=== PATIENT | male | born 1990 | race Caucasian/White ===

== ENCOUNTER 2022-04-20 02:24 | Emergency (ER) | payer MEDICAID, SELFPAY ==
[2022-04-20 02:34] VITALS: BP 146/88; PULSE 88; RESP 16; TEMP 36.9; O2SAT 99; BMI 30.8
--- OUTSIDE RECORDS SUMMARY | 2022-04-20 03:29 | XMS_ITS | Continuity of Care Document ---
:1990 [facility] Address [address] [place] [address]- Care Team Providers Name Role Phone Elo WRIGHT, Shadia M Primary Care Physician [id number](s[facility] 10/[facility]/20 - 11/12/[facility] [address] [place] [id number] Attending Physician: Akash De Anda MD Allergies, Adverse Reactions, Alerts Substance Reaction Severity Status codeine Active ibuprofen Active naproxen Active acetaminophen Active Other Food Allergy oranges - syncope Active Onions Active Immunizations Given and Recorded Vaccine Date Status Refusal Reason pneumococcal 23-valent vaccine 01/03/19 Given Medications chlordiazePOXIDE 25 mg oral capsule 1 capsule = 25 mg, By Mouth, 3 times a day, 0 Refills, Maintenance, 04/24/19 22:52:41 EST Start Date: 04/24/19 Status: Orderedfolic acid 1 mg oral tablet 1 mg, 1, tablet, By Mouth, Daily, Refills 0, Maintenance, 04/24/19 22:52:07 EST Start Date: 04/24/19 Status: Orderedgabapentin 300 mg oral capsule 300 mg, 1, capsule, By Mouth, 3 times a day, # 90 capsule, Refills 0, Tot. Refills 0, Maintenance, 01/04/19 9:19:35 EDT, Print Requisition Start Date: 01/04/19 Stop Date: 02/03/19 Status: OrderedKeppra 250 mg oral tablet = 750 mg, By Mouth, 2 times a day, # 60 application, 0 Refills, Maintenance, 01/04/19 9:19:21 EDT, Tablet Start Date: 01/04/19 Stop Date: 02/03/19 Status: Orderedthiamine 100 mg oral tablet 100 mg, 1, tablet, By Mouth, Daily, Refills 0, Maintenance, 04/24/19 22:51:27 EST Start Date: 04/24/19 Status: Ordered Social History Social History Type Response Smoking Status Former smoker; Tobacco user in household: Yes; Type: Cigarettes; Tobacco use times per day: 1/2 pack per day; entered on: 11/07/16 Sex Male
--- OUTSIDE RECORDS SUMMARY | 2022-04-20 03:29 | XMS_ITS | Continuity of Care Document ---
:1990 Author Organization [facility] Address [address] [place] [address]- Care Team Providers Name Role Phone Elo WRIGHT, Shadia Jung Primary Care Physician Encounter [facility] [id number] Date(s): 10/13/20 - 11/12/20 [facility] [address] [place] [id number] Attending Physician: Corey Muñoz Admitting Physician: Corey Muñoz Referring Physician: Corey Muñoz Allergies, Adverse Reactions, Alerts Substance Reaction Severity [...]
--- OUTSIDE RECORDS SUMMARY | 2022-04-20 03:29 | XMS_ITS | Continuity of Care Document ---
:1990 Author Organization [facility] nter Address [address] [place] [address]- Care Team Providers Name Role Phone Elo WRIGHT, Shadia Jung Primary Care Physician [place] [facility] [place] 06/02/19 - 06/03/[address] [address]- [facility] [phone] Discharge Disposition: A-D/C Home Attending Physician: Suzan Kessler MD Admitting Physician: Suzan Kessler MD Referring Physician: Not on Staff, Referring MD Allergies, Adverse Reactions, Alerts Substance Reaction [...] 22:51:27 EST Start Date: 04/24/19 Status: Ordered Vital Signs Most recent to oldest 1 2 3 [Reference Range]: Height 180 cm (06/02/19 10:38 PM) Weight 98 kg (06/02/19 10:38 PM) Oxygen Saturation [94-100 95 % 96 % 95 % %] (06/03/19 3:18 AM) (06/03/19 12:36 AM) (06/02/19 10 :38 PM) Pulse Rate [55-90 bpm] 69 bpm 70 bpm 70 bpm (06/03/19 3:18 AM) (06/03/19 1:59 AM) (06/03/19 12: 36 AM) Blood Pressure 125/84 mm Hg 122/85 mm Hg 139/82 mm Hg [90-138/55-84 mm Hg] (06/03/19 3:18 AM) (06/03/19 1:59 AM) *H* (06/03/19 12:36 A M) Respiratory Rate [16-30 16 br/min 17 br/min 17 br/mi n br/min] (06/03/19 3:18 AM) (06/03/19 1:59 AM) (06/03/19 12: 36 AM) Temperature [96.8-100.4 97.1 DegF 98 DegF DegF] (06/03/19 12:36 AM) (06/02/19 10:38 PM) Mode of Delivery (Oxygen) Room air Room air Room a ir (06/03/19 3:18 AM) (06/03/19 12:36 AM) (06/02/19 10 :38 PM) Blood pressure sites Arm, right Arm, right Arm, right (06/03/19 3:18 AM) (06/03/19 1:59 AM) (06/03/19 12: 36 AM) Temperature Route Oral Oral (06/03/19 12:36 AM) (06/02/19 10:38 PM) Dry Weight 98 kg (06/02/19 10:38 PM) Dry Weight Obtained Via Patient/family stated (06/02/19 10:38 PM) Social History Social History Type Response Smoking Status Former smoker; Tobacco user in household: Yes; Type: Cigarettes; Tobacco use times per day: 1/2 pack per day; entered on: 11/07/16 Sex
--- OUTSIDE RECORDS SUMMARY | 2022-04-20 03:29 | XMS_ITS | Continuity of Care Document ---
:1990 Author Organization [facility] Address [address] [place] [address]- Care Team Providers Name Role Phone Elo WRIGHT, Shadia M Primary Care Physician Encounter [place] Date(s): 09/13/19 - 09/13/[address] [address]- [facility] Discharge Disposition: A-D/C Home Attending Physician: Shady Duarte MD Admitting Physician: Shady Duarte MD Referring Physician: Not on Staff, Referring [...] Ordered Vital Signs Most recent to oldest [Reference Range]: 1 Oxygen Saturation [94-100 %] 98 % (09/13/19 5:13 AM) Pulse Rate [55-90 bpm] 92 bpm *H* (09/13/19 5:13 AM) Blood Pressure [90-138/55-84 mm Hg] 145/84 mm Hg *H* (09/13/19 5:13 AM) Respiratory Rate [16-30 br/min] 26 br/min (09/13/19 5:13 AM) Temperature [96.8-100.4 DegF] 97.5 DegF (09/13/19 5:13 AM) Mode of Delivery (Oxygen) Room air (09/13/19 5:13 AM) Blood pressure sites Arm, left (09/13/19 5:13 AM) Temperature Route Oral (09/13/19 5:13 AM) Social History Social History Type Response Smoking Status Former smoker; Tobacco user in household: Yes; Type: Cigarettes; Tobacco use times per day: 1/2 pack per day; entered on: 11/07/16 Sex Male
--- OUTSIDE RECORDS SUMMARY | 2022-04-20 03:29 | XMS_ITS | Continuity of Care Document ---
:1990 Author Organization [facility] nter Address [address] [place] [address]- Care Team Providers Name Role Phone Elo WRIGHT, Shadia Jung Primary Care Physician [place] [facility] Date(s): 05/18/19 - 05/18/[address] [address]- [facility] [phone] Encounter Diagnosis Anaphylactic reaction (Final) - 05/18/19 Discharge Disposition: A-D/C Home Attending Physician: Gaby Shah DO Admitting Physician: Gaby Shah DO Referring Physician: Not on Staff, Referring MD [...] Vital Signs Most recent to oldest [Reference 1 2 3 Range]: Height 180 cm 180 cm (05/18/19 8:38 PM) (05/18/19 5:46 PM) Weight 91 kg 91 kg (05/18/19 8:38 PM) (05/18/19 5:46 PM) Oxygen Saturation [94-100 %] 98 % 99 % 98 % (05/18/19 8:38 PM) (05/18/19 6:14 PM) (05/18/19 5:46 P M) Pulse Rate [55-90 bpm] 93 bpm 90 bpm 85 bpm *H* (05/18/19 6:14 PM) (05/18/19 5:46 PM ) (05/18/19 8:38 PM) Body Mass Index [18.5-24.99] 28.09 *H* (05/18/19 8:38 PM) Blood Pressure [90-138/55-84 mm 137/94 mm Hg 134/79 mm Hg 149/82 mm Hg Hg] (05/18/19 8:38 PM) (05/18/19 6:14 PM) *H* (05/18/19 5:46 PM) Respiratory Rate [16-30 br/min] 14 br/min 16 br/min 16 br/min *L* (05/18/19 6:14 PM) (05/18/19 5:46 PM ) (05/18/19 8:38 PM) Temperature [96.8-100.4 DegF] 97.8 DegF (05/18/19 5:46 PM) Mode of Delivery (Oxygen) Room air Room air Room a ir (05/18/19 8:38 PM) (05/18/19 6:14 PM) (05/18/19 5:46 P M) Temperature Route Oral (05/18/19 5:46 PM) Dry Weight 91 kg 91 kg (05/18/19 8:38 PM) (05/18/19 5:46 PM) Social History Social History Type Response Smoking Status Former smoker; Tobacco user in household: Yes; Type: Cigarettes; Tobacco use times per day: 1/2 pack per day; entered on: 11/07/16 Sex
--- OUTSIDE RECORDS SUMMARY | 2022-04-20 03:29 | XMS_ITS | Continuity of Care Document ---
:1988 Author Organization [facility] nter Address [address] [place] [address]- Care Team Providers Name Role Phone Elo WRIGHT, Shadia Jung Primary Care Physician Encounter [facility] [place] Date(s): 04/24/19 - 04/25/[address] [address]- [facility] [phone] Encounter Diagnosis Generalized seizure (Final) - 04/24/19 Discharge Disposition: A-D/C Usp, Custodial, or Usp Fac Attending Physician: Gaby Shah DO Admitting Physician: [...] oldest 1 2 3 [Reference Range]: Height 178 cm (04/24/19 10:42 PM) Weight 102.1 kg (04/24/19 10:42 PM) Oxygen Saturation [94-100 99 % 99 % 99 % %] (04/24/19 11:45 PM) (04/24/19 11:15 PM) ( 11:00 PM) Pulse Rate [55-90 bpm] 71 bpm 73 bpm 63 bpm (04/24/19 11:45 PM) (04/24/19 11:15 PM) ( 11:00 PM) Blood Pressure 130/97 mm Hg 133/97 mm Hg 125/74 mm Hg [90-138/55-84 mm Hg] (04/24/19 11:45 PM) (04/24/19 11:15 PM) ( 11:00 PM) Respiratory Rate [16-30 18 br/min 18 br/min 18 br/mi n br/min] (04/24/19 11:45 PM) (04/24/19 11:15 PM) ( 11:00 PM) Temperature [96.8-100.4 97.1 DegF 97.7 DegF DegF] (04/24/19 11:45 PM) (04/24/19 10:42 PM) Mode of Delivery (Oxygen) Room air Room air Room a ir (04/24/19 11:45 PM) (04/24/19 11:15 PM) ( 11:00 PM) Blood pressure sites Arm, left Arm, left Arm, left (04/24/19 11:45 PM) (04/24/19 11:15 PM) ( 11:00 PM) Temperature Route Oral Oral (04/24/19 11:45 PM) (04/24/19 10:42 PM) Dry Weight 102.1 kg (04/24/19 10:42 PM) Social History Social History Type Response Smoking Status Former smoker; Tobacco user in household: Yes; Type: Cigarettes; Tobacco use times per day: 1/2 pack per day; entered on: 11/07/16 Sex
--- OUTSIDE RECORDS SUMMARY | 2022-04-20 03:29 | XMS_ITS | Continuity of Care Document ---
:1988 Author Organization [facility] Address [address] [facility], 3rd Floor, [address] [place] [address]- Care Team Providers Name Role Phone Elo WRIGHT, Shadia Jung Primary Care Physician [place] [facility] [place] Date(s): 10/22/19 - 10/29/19 [facility] [address] [place], [address]rd Floor, [address] [place] [address] [facility] Attending Physician: Shannon Asencio DNP Referring Physician: Renay Valderrama NP Allergies, Adverse Reactions, Alerts Substance Reaction Severity [...]
--- OUTSIDE RECORDS SUMMARY | 2022-04-20 03:29 | XMS_ITS | Continuity of Care Document ---
:1988 Author Organization [facility] Address [address] [place], 3rd Floor, [address] [place] [address]- Care Team Providers Name Role Phone Lavelle TSAI, Renay Michel Primary Care Physician Encounter [facility] Date(s): 12/29/21 - 01/28/22 [facility] [address] [facility], 3rd Floor, [address] [place] [address]- Attending Physician: Corey Muñoz Admitting Physician: AdmCorey archer Referring Physician: AdmtrCorey Allergies, Adverse Reactions, Alerts Substance Reaction Severity Status codeine Active ibuprofen Active naproxen Active Onions Active acetaminophen Active Other Food Allergy oranges - syncope Active Immunizations Given and Recorded Vaccine Date Status Refusal Reason pneumococcal 23-valent vaccine 01/03/19 Given Medications albuterol 2.5mg / 3mL (0.083%) (OP) 3 mL = 2.5 mg, Neb, Every 6 hours, PRN as needed for wheezing, # 90 mL, 0 Refills, Maintenance Start Date: 12/26/21 Status: Orderedalbuterol 90 mcg/inh inhalation powder 2 puffs, Inhalation, Every 4 hours, PRN as needed, # 1 each, 0 Refills, Maintenance, 12/26/21 14:56:00 EDT, Powder, Partial fill upon patient request if the prescription is for a schedule II opioid drug. Start Date: 12/26/21 Status: Orderedbaclofen 10 mg oral tablet 10 mg, 1, tablet, By Mouth, 2 times a day, PRN, # 90 tablet, Refills 5, Maintenance, Other, 12/26/2213:56:00 EDT, Partial fill upon patient request if the prescription is for a schedule II opioid drug. Start Date: 12/26/21 Status: OrderedcloNIDine 0.1 mg oral tablet 0.1 mg, 1, tablet, By Mouth, 3 times a day, # 180 tablet, Refills 0, Maintenance, 12/26/21 14:57:00 EDT, Partial fill upon patient request if the prescription is for a schedule II opioid drug. Start Date: 12/26/21 Status: OrderedEpiPen 2-Fredy = 0.3 mg, Intramuscular, Once, PRN Anaphylactic Reaction, 0 Refills, Maintenance, 12/26/21 14:57:00 EDT, Partial fill upon patient request if the prescription is for a schedule II opioid drug. Start Date: 12/26/21 Status: Orderedgabapentin 300 mg oral capsule 300 [...] Start Date: 01/04/19 Stop Date: 02/03/19 Status: Orderedolanzapine 5 mg oral tablet 5 mg, 1, tablet, By Mouth, Daily, # 30 tablet, Refills 0, Maintenance, 12/26/21 14:57:00 EDT, Partial fill upon patient request if the prescription is for a schedule II opioid drug. Start Date: 12/26/21 Status: Orderedsertraline 100 mg oral tablet 1 tablet = 100 mg, By Mouth, Daily, # 30 tablet, 0 Refills, Maintenance, 12/26/21 14:57:00 EDT, Tablet, Partial fill upon patient request if the prescription is for a schedule II opioid drug. Start Date: 12/26/21 Status: OrderedTriamcinolone 0.1% ointment Topically, 0 Refills, Maintenance, 12/26/21 14:58:00 EDT, Partial fill upon patient request if the prescription is for a schedule II opioid drug. Start Date: 12/26/21 Status: Orderedzolpidem 10 mg oral tablet 1 tablet = 10 mg, By Mouth, Daily at bedtime, # 30 tablet, 0 Refills, Maintenance, 12/26/21 14:58:00EDT, Partial fill upon patient request if the prescription is for a schedule II opioid drug. Start Date: 12/26/21 Status: Ordered Social History Social History Type Response Smoking Status Former smoker; Tobacco user in household: Yes; Type: Cigarettes; Tobacco use times per day: 1/2 pack per day; entered on: 11/07/16 Sex Male Care Team PersonnelName: Lavelle TSAI, Renay Michel Address: [address] [place] [address]
--- OUTSIDE RECORDS SUMMARY | 2022-04-20 03:29 | XMS_ITS | Continuity of Care Document ---
:1990 Author Organization [facility] Address [address] [facility], 3rd Floor, [address] [place] [address]- Care Team Providers Name Role Phone Elo WRIGHT, Shadia Jung Primary Care Physician En[facility] [place] Date(s): 10/22/19 - 11/21/19 [facility] [address] [place], [address]rd Floor, [address] [place] [address]- [facility] Attending Physician: Corey Muñoz Admitting Physician: AdmtrCorey Referring Physician: Admtr, Ar8 Allergies, Adverse Reactions, Alerts Substance Reaction Severity [...]
--- OUTSIDE RECORDS SUMMARY | 2022-04-20 03:29 | XMS_ITS | Continuity of Care Document ---
:1990 Author Organization [facility] Address [address] [place] [address], 3rd Floor, [address] [place] [address]- Care Team Providers Name Role Phone Lavelle TSAI, Renay Michel Primary Care Physician Encounter [facility] [place] Date(s): 12/29/21 - 01/05/22 [facility] [address] [place] [address], [address] [place] [address], [address] [place] [address]- Attending Physician: Shannon Asencio DNP Referring Physician: Staci Martell MD, Howard Chacko Allergies, Adverse Reactions, Alerts Substance Reaction Severity Status codeine Active ibuprofen Active Onions Active Other Food Allergy oranges - syncope Active naproxen Active acetaminophen Active Immunizations Given and Recorded Vaccine Date [...] Team PersonnelName: Lavelle TSAI, Renay Michel Address: [address] [place] [address]
--- OUTSIDE RECORDS SUMMARY | 2022-04-20 03:29 | XMS_ITS | Continuity of Care Document ---
:1988 Author Organization [facility] n[facility] Address [address] [place] [address]- Care Team Providers Name Role Phone Elo WRIGHT, Shadia Jung Primary Care Physician Encounter [facility] [place] Date(s): 04/27/19 - 04/27/19 [place] [id number] [phone] Encounter Diagnosis Seizure (Final) - 04/27/19 Headache (Final) - 04/27/19 Discharge Disposition: A-D/C Home Attending Physician: Celestina Noyola DO Admitting Physician: Celestina Noyola DO Referring Physician: Not on Staff, Referring [...] 2 3 [Reference Range]: Height 178 cm 178 cm (04/27/19 9:33 PM) (04/27/19 8:57 PM) Weight 102.5 kg 102.5 kg (04/27/19 9:33 PM) (04/27/19 8:57 PM) Oxygen Saturation [94-100 99 % 99 % 100 % %] (04/27/19 11:26 PM) (04/27/19 10:46 PM) ( 10:07 PM) Pulse Rate [55-90 bpm] 83 bpm 82 bpm 81 bpm (04/27/19 11:26 PM) (04/27/19 10:46 PM) ( 10:07 PM) Body Mass Index 32.35 [18.5-24.99] *>HHI* (04/27/19 8:57 PM) Blood Pressure 136/99 mm Hg 114/80 mm Hg 127/97 mm Hg [90-138/55-84 mm Hg] (04/27/19 11:26 PM) (04/27/19 10:46 PM) ( 10:07 PM) Respiratory Rate [16-30 14 br/min 18 br/min 15 br/mi n br/min] *L* (04/27/19 11:18 PM) *L* (04/27/19 11:26 PM) (04/27/19 10 :46 PM) Temperature [96.8-100.4 98.0 DegF 98.2 DegF DegF] (04/27/19 10:46 PM) (04/27/19 8:57 PM) Mode of Delivery (Oxygen) Room air Room air Room a ir (04/27/19 11:26 PM) (04/27/19 10:46 PM) ( 10:07 PM) Blood pressure sites Arm, left Arm, left Arm, left (04/27/19 11:26 PM) (04/27/19 10:07 PM) ( 9 8:57 PM) Temperature Route Oral Oral (04/27/19 10:46 PM) (04/27/19 8:57 PM) Dry Weight 102.5 kg 102.5 kg (04/27/19 9:33 PM) (04/27/19 8:57 PM) Weight Obtained Via Patient/family stated (04/27/19 8:57 PM) Social History Social History Type Response Smoking Status Former smoker; Tobacco user in household: Yes; Type: Cigarettes; Tobacco use times per day: 1/2 pack per day; entered on: 11/07/16 Sex
--- NOTE | 2022-04-20 03:40 | ED.DENTAL ---
HPI - Dental/Oral General Chief complaint: Dental/Oral Stated complaint: dental pain after wisdom teeth removal Time Seen by Provider: 04/20/22 03:24 Source: patient Mode of arrival: ambulatory Limitations: no limitations History of Present Illness HPI Narrative: 31-year-old male came in for evaluation of mouth pain after wisdom tooth extracted earlier yesterday. Status post right lower wisdom tooth extraction patient was not given pain medication by the dentist presented today after having severe pain in extraction area. Related Data Previous Rx's Medication Instructions Recorded oxycodone 5 mg tablet 5 mg PO Q8H PRN pain #4 tabs 04/20/22 Allergies Allergy/AdvReac Type Severity Reaction Status Date / Time acetaminophen [From TYLENOL] Allergy Unknown HIVES Unverified 01/29/20 17:17 codeine [CODEINE] Allergy Unknown HIVES Unverified 01/29/20 17:17 ibuprofen [From MOTRIN] Allergy Unknown HIVES Unverified 01/29/20 17:17 Review of Systems Review of Systems: All other systems are reviewed and are negative Constitutional: Reports as per HPI and Reports no additional constitutional complaints Eyes: Reports as per HPI and Reports no additional eye complaints Reports system reviewed and no additional complaints, except as documented Cardiovascular: Reports as per HPI and Reports no additional cardiovascular complaints Respiratory: Reports as per HPI and Reports no additional respiratory complaints Gastrointestinal: Reports as per HPI and Reports no additional gastrointestinal complaints Genitourinary: Reports no additional female genitourinary complaints Musculoskeletal: Reports no additional musculoskeletal complaints Skin/Breast: Reports system reviewed and no additional complaints, except as docu Psychiatric: Reports no additional psychiatric complaints Endocrine: Reports no additional endocrine complaints Hematologic/Lymphatic: Reports no additional hematologic/lymphatic complaints Allergic/Immunologic: Reports no additional allergic/immunologic complaints Reports system reviewed and no additional complaints, except as documented and Reports Abnormal speech present [facility] Social History Social History Advance Directives: No Physical Exam Vital Signs: Vital Signs: Last Vital Signs Temp 98.5 F 04/20/22 02:34 Pulse 88 04/20/22 02:34 Resp 16 04/20/22 02:34 BP 146/88 H 04/20/22 02:34 Pulse Ox 99 04/20/22 02:34 O2 Del Method 04/20/22 02:34 BMI result Body Mass Index 30.8 Vital signs have been reviewed as appeared to be correct. Blood pressure normal. Heart rate normal. Respiration rate normal. Temperature normal. Oxygen saturation normal. Appearance: Alert. Oriented X3. No acute distress. Head: Normal external exam. Normocephalic. Atraumatic. No Carrasco signs noted. No raccoon eyes noted. Mouth exam: Status post right lower wisdom tooth extraction, no obvious swelling and good home, no fluctuation, with blood clot in the socket. Eyes: PERRLA. EOMI. Conjunctiva and sclera normal. Eyelids normal. ENT: TM's Normal. Pharynx normal. Uvula midline. Moist mucous membranes. No trismus noted. No drooling noted. No muffled voice noted. Neck: Normal inspection. Neck supple. FROM. No adenopathy. Thyroid Normal. No meningeal signs. No neck mass noted. CVS: Normal heart rate and rhythm. Heart sound normal. No murmurs noted. Pulses normal throughout. Respiratory: No respiratory distress. Painless inspiration. Breath sounds normal. No wheezes/rales/rhonchi noted. Chest nontender. No accessory muscle usage noted or decreased air movement noted. Abdomen: Soft and nontender. Bowel sounds normal in all 4 quadrants. No distention noted. No organomegaly noted. No visible injury noted. Back: No CVA tenderness. Full range of motion noted. Skin: Skin warm and dry. Normal skin color. Normal skin turgor. No rashes/lesions/lacerations noted. Extremities: No lower extremity edema. Extremities exhibit normal range of motion. Extremities nontender. Neuro: Oriented X 3. Cranial nerve exam: II-XII are grossly intact No motor deficit. No sensory deficit. Reflexes normal. Course Course Course Narrative: Post dental extraction pain will give Dilaudid and prescribed oxycodone for few days and follow up with his dentist. Medical Decision Making Medical Decision Making Differential Diagnoses: Differential diagnosis (Post extraction pain/dry socket pain/dental abscess.) Discharge Plan Discharge Clinical Impression: S/P tooth extraction, Toothache Patient Disposition: Home, Self-Care Instructions: Toothache (ED) Additional Instructions: Follow-up with your dentist. Prescriptions: New oxycodone 5 mg tablet 5 mg PO Q8H PRN (Reason: pain) Qty: 4 0RF Rx Instructions: Partial Fill upon patient request.
[2022-04-20 03:51] VITALS: BP 110/61; PULSE 84; RESP 16; TEMP 36; O2SAT 97
[2022-04-20] MEDS: HYDROmorphone HCl 2 MG TABLET PO (04:33)
== END 2022-04-20 05:39 | disposition home or self-care (01) ==
PROVIDERS: Emergency Provider Emergency Medicine
DX: K08.89 Other specified disorders of teeth and supporting structures (principal)
CPT/HCPCS: 99283

== ENCOUNTER 2022-05-24 08:51 | Inpatient (IN) | payer MEDICAID, SELFPAY ==
--- NOTE | 2022-05-24 | ECG_ITS ---
Test Reason : ABDOMINAL PAIN/ WEAKNESS Blood Pressure : / mmHG Vent. Rate : 064 BPM Atrial Rate : 064 BPM P-R Int : 100 ms QRS Dur : 092 ms QT Int : 378 ms P-R-T Axes : 036 065 037 degrees QTc Int : 389 ms Sinus rhythm with short TN Otherwise normal ECG No previous ECGs available Referred By: Generic ED Physician Electronically Signed By:Nilson Louis
--- NOTE | ~2022-05-24 | CT_ITS ---
EXAMINATION: CT ABDOMEN AND PELVIS WITHOUT CONTRAST CLINICAL INFORMATION: Abdominal pain COMPARISON: None TECHNIQUE: Multidetector volumetric imaging was performed from the superior aspect of the liver through the pubic symphysis. Sagittal and coronal reformatted images were obtained on the technologist's workstation. This CT examination was performed using dose optimization techniques as appropriate, variously including the following: *Automated exposure control *Adjustment of mA and/or kV according to patient size (this includes techniques or standardized protocols for targeted exams where dose is matched to indication/reason for exam; i.e. extremities or head) *Use of iterative reconstruction technique DLP: 775 mGy-cm FINDINGS: LUNG BASES: The visualized lung bases are unremarkable. LIVER, GALLBLADDER, AND BILIARY TREE: The liver is normal in size, shape, and attenuation. No focal hepatic lesion or biliary ductal dilatation is present. The gallbladder wall appears thickened and there are some mild inflammatory changes around the gallbladder. No calcified gallstones are seen. PANCREAS: Unremarkable. SPLEEN: Unremarkable. ADRENAL GLANDS: Unremarkable. KIDNEYS AND URETERS: The kidneys are normal in size, shape, and attenuation. No hydronephrosis, hydroureter, or calculi seen. No perinephric stranding. BLADDER: Unremarkable. GASTROINTESTINAL TRACT: The small and large bowel are unremarkable. The appendix is unremarkable. ABDOMINAL WALL: No significant hernia is appreciated. LYMPH NODES: Normal. VASCULAR: Unremarkable. PELVIC VISCERA: The prostate and seminal vesicles are unremarkable. OSSEOUS STRUCTURES: Unremarkable. CT/CT abdomen pelvis wo IV con IMPRESSION: Gallbladder wall thickening with some mild inflammatory changes around the gallbladder. No calcified gallstones are seen. Ultrasound is recommended for further evaluation. No other possible cause for abdominal pain is seen. Fleischner guidelines were followed.
--- NOTE | ~2022-05-24 | US_ITS ---
EXAMINATION: US ABDOMEN LIMITED CLINICAL INFORMATION: Abdominal pain. COMPARISON: CT abdomen 05/24/2022 TECHNIQUE: Real-time imaging of the gallbladder only. FINDINGS: GALLBLADDER: Gallbladder is filled with multiple shadowing stones. The gallbladder wall is thickened between 0.9 x 1.3 cm. Barrientos's sign is positive. Tiny amount of fluid is seen within the gallbladder wall. COMMON BILE DUCT: Normal in caliber measuring 0.2 cm in diameter. US/US abdomen limited IMPRESSION: Cholelithiasis with gallbladder wall thickening and positive Barrientos's sign. Findings are suggestive of acute cholecystitis.
[2022-05-24 08:57] VITALS: BP 155/103; PULSE 74; RESP 17; TEMP 36.1; O2SAT 96; BMI 33.5
--- NOTE | 2022-05-24 09:07 | ED.GENADULT ---
HPI - General Adult General Chief complaint: Abdominal Pain Stated complaint: haven't sleep x3 days, back pain, stomach pain Time Seen by Provider: 05/24/22 09:06 Source: patient Mode of arrival: ambulatory Limitations: no limitations History of Present Illness HPI narrative: Patient is a 32 year old assigned male at with no reported medical history presenting to the emergency department today with abdominal pain. Patient states that over the last 4 days he has had upper abdominal pain, specifically under his right side. Patient denies any dizziness, lightheadedness, nausea, vomiting, fever, chills, blurry vision, double vision, loss of vision, chest pain, difficulty breathing, shortness of breath, back pain, night sweats, pain with urination, increased urinary frequency, increased urinary urgency, blood in his urine or stool, syncope or a near syncopal episode, recent trauma or falls, bowel incontinence, bladder incontinence, bowel retention, bladder retention, or any other complaints at this time. Patient states that the pain is significantly worse after etaing. Onset (ago): day(s) (4) Location: abdomen Radiation: non-radiation Severity: moderate Severity scale (1-10): 4 Quality: sharp Pain Consistency: constant Relieving factors: none Exacerbating factors: none Associated symptoms: denies other symptoms Treatments prior to arrival: none Related Data Home Medications Medication Instructions Recorded Confirmed albuterol sulfate 90 mcg/actuation 2 puff inhalation Q4H PRN 05/24/22 aerosol inhaler (Ventolin HFA) Shortness Of Breath Or Wheezing clonidine HCl 0.1 mg tablet 0.1 mg PO TID 05/24/22 olanzapine 5 mg tablet 5 mg PO BEDTIME 05/24/22 sertraline 100 mg tablet 150 mg PO DAILY 05/24/22 zolpidem 10 mg tablet (Ambien) 10 mg PO BEDTIME PRN Insomnia 05/24/22 Allergies Allergy/AdvReac Type Severity Reaction Status Date / Time acetaminophen [From TYLENOL] Allergy Unknown HIVES Verified 05/24/22 09:00 codeine [CODEINE] Allergy Unknown HIVES Verified 05/24/22 09:00 ibuprofen [From MOTRIN] Allergy Unknown HIVES Verified 05/24/22 09:00 Review of Systems Constitutional: Constitutional: Reports no additional constitutional complaints, Denies chills, Denies fever(s) and Denies night sweats Eyes: Eyes: Reports no additional eye complaints, Denies blurry vision, Denies change in vision, Denies diplopia, Denies eye discharge, Denies loss of vision and Denies eye pain ENT: Denies dizziness Cardiovascular: Cardiovascular: Reports no additional cardiovascular complaints, Denies chest pain, Denies lightheadedness, Denies Loss of Consciousness and Denies dyspnea Respiratory: Respiratory: Reports no additional respiratory complaints and Denies dyspnea Gastrointestinal: Gastrointestinal: Reports no additional gastrointestinal complaints, Reports abdominal pain, Denies melena, Denies hematochezia, Denies change in bowel habits and Denies change in stool character Genitourinary: Genitourinary: Reports no additional male genitourinary complaints, Denies hematuria, Denies oliguria, Denies difficulty urinating, Denies dysuria, Denies urinary frequency, Denies urinary hesitancy, Denies urinary incontinence and Denies urinary urgency Musculoskeletal: Musculoskeletal: Reports no additional musculoskeletal complaints, Denies numbness and Denies tingling Neurologic: Denies dizziness, Denies loss of vision, Denies numbness and Denies tingling Psychiatric: Psychiatric: Reports no additional psychiatric complaints Endocrine: Endocrine: Reports no additional endocrine complaints Hematologic/Lymphatic: Hematologic/Lymphatic: Reports no additional hematologic/lymphatic complaints Allergic/Immunologic: Allergic/Immunologic: Reports no additional allergic/immunologic complaints PMFSH Past Medical History Attestation statement: The following information was validated with the patient. Source: old records reviewed and nursing notes reviewed Social History Social History Smoked in Last 30 Days: Yes Substance Use Type: Marijuana Advance Directives: No Advance Directives Information Provided: No Physical Exam ED Vital Signs: Vital Signs - 24 hr 05/24/22 08:57 05/24/22 09:27 05/24/22 12:02 Temperature 97 F 98.1 F Pulse Rate 74 69 60 Respiratory Rate 17 16 16 Blood Pressure 155/103 H 142/100 H 128/83 Pulse Oximetry 96 98 98 Oxygen Delivery Method Room Air Room Air BMI result Body Mass Index 33.5 Const General: cooperative, no acute distress, alert and awake Nutritional Appearance: well nourished Orientation/consciousness: patient oriented x3 Limitations: no limitations HENMT Head: Yes normal to inspection and Yes atraumatic Ears: hearing grossly normal bilaterally and external ears normal General nose exam: Normal external nose present, no nasal discharge noted and no epistaxis Face and sinus: Yes normal facial exam, No abrasion and No laceration Mouth: Normal oral and palatal mucosa present, no drooling and no muffled voice Eyes General: appearance normal, both eyes and all related structures Periorbital: periorbital findings normal Eyelids: Yes eyelids normal Conjunctivae: conjunctivae normal Pupils: Equal, round and reactive pupils present EOM: EOMs intact bilaterally Neck Neck: Yes normal visual inspection, Yes full ROM and Yes no lymphadenopathy Chest Chest palpation & inspection: normal inspection of the chest Resp Effort & Inspection: normal respiratory effort and able to speak in complete sentences Auscultation: clear to auscultation bilaterally Cardio Rate: regular rate Rhythm: regular rhythm GI Inspection: Yes normal to inspection Palpation (GI): Soft to palpation, not firm, Tenderness to palpation present (GI) in the RUQ, no guarding and not rigid Neuro General: patient oriented x3 and moves all extremities Cranial nerves: Yes Equal, round and reactive pupils present Cognition (Neuro): normal cognition Motor exam (neuro): 5/5 motor strength present throughout Sensory Exam: Normal double simultaneous stimulation for sensation Coordination: [id number] test normal Extrem General: Yes normal to inspection, Yes full ROM and Yes capillary refill normal Psych Appearance: grossly normal Mental Status: mental status grossly normal Affect: normal affect Attitude: cooperative Thought process: Normal thought process present Thought content: Normal thought content present Insight: Good insight present (Psych) Medications Administered Generic Name Dose Route Start Last Admin Trade Name Freq PRN Reason Stop Dose Admin Dextrose/Lactated Ringer's 1,000 mls @ 125 mls/hr 05/24/22 13:00 05/24/22 14:15 D5lr IVCONT 125 mls/hr .Q8H JOSE Administration Piperacillin Sod/Tazobactam 50 mls @ 100 mls/hr 05/24/22 14:00 05/24/22 14:35 Sod 3.375 gm/ Sodium Chloride IV 100 mls/hr Q6H JOSE Administration Discontinued Medications Generic Name Dose Route Start Last Admin Trade Name Freq PRN Reason Stop Dose Admin Al Hydroxide/Mg Hydroxide 15 ml 05/24/22 09:10 05/24/22 09:24 Magnesium Hydrox/Alum Hydrox 30 Ml Oral.Susp PO 01/11/23 09:11 15 ml ONCE ONE Administration Sodium Chloride 1,000 mls @ 999 mls/hr 05/24/22 10:30 05/24/22 12:41 Ns IV 05/24/22 11:30 Infused .Q1H1M JOSE Infusion Pantoprazole Sodium 40 mg 05/24/22 09:10 05/24/22 09:24 Pantoprazole Sodium 40 Mg/10 Ml Vial IVPUSH 05/24/22 09:11 40 mg ONCE ONE Administration Medical Decision Making Medical Decision Making [facility] Narrative: Patient is a 32 year old assigned male at with no reported medical history presenting to the emergency department today with abdominal pain. Patient's physical exam showed RUQ abdominal pain. Patient's blood work showed an elevated WBC count of 11.5. Patient's EKG was unremarkable. Patient's abdominal CT showed a thickened gallbladder - radiologist recommends US for further eval. Abdominal US showed cholecystitis. Patient's clinical presentation is not consistent with sepsis. I spoke to the general surgeon occupational hygienist who agreed to admission. I explained my physical exam findings as well as all test results to the patient. I answered all questions asked by the patient. Patient verbalized agreement and understanding with this treatment plan and admission. Differential Diagnosis Differential Diagnoses: The differential diagnosis associated with the presentation includes abdominal pain, cholecystitis Consult Healthcare Provider Management of the patient was discussed with: Analyst [employer] (spoke to the general surgeon who agreed to admission) Lab Data [facility] Lab Attestation statement: I reviewed the patient's lab results. 05/24/22 09:20 05/24/22 09:20 Labs: Lab Results 05/24/22 05/24/22 05/24/22 Range/Units 09:20 09:20 09:20 WBC 11.5 H (4.8-10.8) X10*3/uL RBC 5.65 (4.60-5.80) X10*6/uL Hgb 15.7 (14.0-18.0) g/dl Hct 47.0 (42.0-52.0) % MCV 83.2 (80.0-98.0) fL MCH 27.8 (27.0-33.0) pg MCHC 33.4 (31.0-36.0) g/dl RDW 13.3 (11.0-16.0) % Plt Count 324 (160-400) X10*3/uL MPV 9.2 L (9.4-12.4) fL Immature Gran % (Auto) 0.3 (0.0-0.4) % Neut % (Auto) 60.6 (45-73) % Lymph % (Auto) 27.8 (20-40) % Dixon % (Auto) 9.5 (2-11) % Eos % (Auto) 1.4 (0-4) % Baso % (Auto) 0.4 (0-2) % Lymph # (Auto) 3.2 (1.2-4.9) X10*3/uL Dixon # (Auto) 1.1 (0.1-1.2) X10*3/uL Eos # (Auto) 0.2 (0.0-0.4) X10*3/uL Baso # (Auto) 0.1 (0.0-0.2) X10*3/uL Abs Immat Gran (auto) 0.04 H (0.00-0.03) X10*3/uL Absolute Neuts (auto) 6.9 (2.0-8.3) x10*3/uL Absolute Nucleated RBC 0.000 (0.0-0.012) X10*3/uL Nucleated RBC % (auto) 0.0 (0.0-0.2) /100WBC Sodium 137 (135-145) mmol/L Potassium 4.3 (3.3-5.1) mmol/L Chloride 105 (96-108) mmol/L Carbon Dioxide 23 (22-29) mmol/L Anion Gap 13 (12-20) BUN 12 (9-16) mg/dL Creatinine 0.82 (0.5-1.4) mg/dL Estim Creat Clear Calc 159.2 Estimated GFR > 60 Random Glucose 100 (60-115) mg/dL Calcium 10.0 (8.4-10.2) mg/dL Total Bilirubin 0.3 0.3 (0.0-1.0) mg/dL Direct Bilirubin < 0.2 (0.0-0.5) mg/dL AST 22 22 (5-37) U/L ALT 33 33 (0-40) U/L Alkaline Phosphatase 123 H 121 H (39-117) U/L Total Protein 7.9 7.8 (6.5-8.0) g/dL Albumin 4.6 4.6 (3.5-5.0) g/dL Lipase 15 15 (8-78) U/L Ethyl Alcohol < 10 mg/dL COVID-19 (FAUZIA) (Negative) COVID-19 Clin Com 05/24/22 Range/Units 12:38 WBC (4.8-10.8) X10*3/uL RBC (4.60-5.80) X10*6/uL Hgb (14.0-18.0) g/dl Hct (42.0-52.0) % MCV (80.0-98.0) fL MCH (27.0-33.0) pg MCHC (31.0-36.0) g/dl RDW (11.0-16.0) % Plt Count (160-400) X10*3/uL MPV (9.4-12.4) fL Immature Gran % (Auto) (0.0-0.4) % Neut % (Auto) (45-73) % Lymph % (Auto) (20-40) % Dixon % (Auto) (2-11) % Eos % (Auto) (0-4) % Baso % (Auto) (0-2) % Lymph # (Auto) (1.2-4.9) X10*3/uL Dixon # (Auto) (0.1-1.2) X10*3/uL Eos # (Auto) (0.0-0.4) X10*3/uL Baso # (Auto) (0.0-0.2) X10*3/uL Abs Immat Gran (auto) (0.00-0.03) X10*3/uL Absolute Neuts (auto) (2.0-8.3) x10*3/uL Absolute Nucleated RBC (0.0-0.012) X10*3/uL Nucleated RBC % (auto) (0.0-0.2) /100WBC Sodium (135-145) mmol/L Potassium (3.3-5.1) mmol/L Chloride (96-108) mmol/L Carbon Dioxide (22-29) mmol/L Anion Gap (12-20) BUN (9-16) mg/dL Creatinine (0.5-1.4) mg/dL Estim Creat Clear Calc Estimated GFR Random Glucose (60-115) mg/dL Calcium (8.4-10.2) mg/dL Total Bilirubin (0.0-1.0) mg/dL Direct Bilirubin (0.0-0.5) mg/dL AST (5-37) U/L ALT (0-40) U/L Alkaline Phosphatase (39-117) U/L Total Protein (6.5-8.0) g/dL Albumin (3.5-5.0) g/dL Lipase (8-78) U/L Ethyl Alcohol mg/dL COVID-19 (FAUZIA) Negative (Negative) COVID-19 Clin Com See Note Radiology Impression Discussion of test interpretation with radiology: I have reviewed the radiologist's reading. Radiologist Impression: My interpretation is in agreement with the radiologist's impression of these imaging studies. EXAMINATION: CT ABDOMEN AND PELVIS WITHOUT CONTRAST? CLINICAL INFORMATION: Abdominal pain? COMPARISON: None? TECHNIQUE: Multidetector volumetric imaging was performed from the superior aspect of the liver through the pubic symphysis. Sagittal and coronal reformatted images were obtained on the technologist's workstation.? This CT examination was performed using dose optimization techniques as appropriate, variously including the following: *Automated exposure control *Adjustment of mA and/or kV according to patient size (this includes techniques or standardized protocols for targeted exams where dose is matched to indication/reason for exam; i.e. extremities or head) *Use of iterative reconstruction technique DLP: 775 mGy-cm FINDINGS: LUNG BASES: The visualized lung bases are unremarkable.? LIVER, GALLBLADDER, AND BILIARY TREE: The liver is normal in size, shape, and attenuation. No focal hepatic lesion or biliary ductal dilatation is present. The gallbladder wall appears thickened and there are some mild inflammatory changes around the gallbladder. No calcified gallstones are seen.? PANCREAS: Unremarkable.? SPLEEN: Unremarkable.? ADRENAL GLANDS: Unremarkable.? KIDNEYS AND URETERS: The kidneys are normal in size, shape, and attenuation. No hydronephrosis, hydroureter, or calculi seen. No perinephric stranding. ? BLADDER: Unremarkable.? GASTROINTESTINAL TRACT: The small and large bowel are unremarkable. The appendix is unremarkable.? ABDOMINAL WALL: No significant hernia is appreciated.? LYMPH NODES: Normal. VASCULAR: Unremarkable. PELVIC VISCERA: The prostate and seminal vesicles are unremarkable.? OSSEOUS STRUCTURES: Unremarkable.? CT/CT abdomen pelvis wo IV con IMPRESSION: Gallbladder wall thickening with some mild inflammatory changes around the gallbladder. No calcified gallstones are seen. Ultrasound is recommended for further evaluation. No other possible cause for abdominal pain is seen. ? Fleischner guidelines were followed. Dictated By: Bang Winston MD Signed By: Electronically signed by Bang Winston MD 05/24/22 1029 EXAMINATION: US ABDOMEN LIMITED CLINICAL INFORMATION: Abdominal pain. COMPARISON: CT abdomen 05/24/2022 TECHNIQUE: Real-time imaging of the gallbladder only. FINDINGS: GALLBLADDER: Gallbladder is filled with multiple shadowing stones. The gallbladder wall is thickened between 0.9 x 1.3 cm. Barrientos's sign is positive. Tiny amount of fluid is seen within the gallbladder wall. COMMON BILE DUCT: Normal in caliber measuring 0.2 cm in diameter. US/US abdomen limited IMPRESSION: Cholelithiasis with gallbladder wall thickening and positive Barrientos's sign. Findings are suggestive of acute cholecystitis. Dictated By: Bang Winston MD Signed By: Electronically signed by Bang Winston MD 05/24/22 1158 Critical Care Time Critical Care Time Critical Care Time: Yes Total Critical Care Time: 30 Attestation: I spent 30 minutes of Critical Care Time with this patient. This does not include time spent on separately reported billable procedures. Discharge Plan Discharge Clinical Impression: Cholecystitis, acute with cholelithiasis Patient Disposition: Admitted As Inpatient
[2022-05-24 09:24] LABS: MANUAL DIFF FLAG NO
[2022-05-24] MEDS: Magnesium Hydrox/Alum Hydrox 30 ML ORAL.SUSP 15 ML PO (09:24)
[2022-05-24] MEDS: Pantoprazole Sodium 40 MG/10 ML VIAL IVPUSH (09:24)
[2022-05-24 09:25] LABS: Basophils Absolute Auto 0.1 X10*3/uL (0.0-0.2); Basophils Percent Auto 0.4 % (0-2); Eosinophils Absolute Auto 0.2 X10*3/uL (0.0-0.4); Eosinophils Percent Auto 1.4 % (0-4); Hemoglobin 15.7 g/dl (14.0-18.0); Imm Gran Abs Auto 0.04 X10*3/uL (0.00-0.03); Imm Gran Pct Auto 0.3 % (0.0-0.4); Lymphocytes Absolute Auto 3.2 X10*3/uL (1.2-4.9); Lymphocytes Percent Auto 27.8 % (20-40); Mean Corpuscular HGB Conc 33.4 g/dl (31.0-36.0); Mean Corpuscular Hemoglobin 27.8 pg (27.0-33.0); Mean Corpuscular Volume 83.2 fL (80.0-98.0); Mean Platelet Volume 9.2 fL (9.4-12.4); Monocytes Absolute Auto 1.1 X10*3/uL (0.1-1.2); Monocytes Percent Auto 9.5 % (2-11); Neutrophils Absolute Auto 6.9 x10*3/uL (2.0-8.3); Neutrophils Percent Auto 60.6 % (45-73); Platelet Count 324 X10*3/uL (160-400); Red Blood Count 5.65 X10*6/uL (4.60-5.80); Red Cell Distribution Width 13.3 % (11.0-16.0); White Blood Count 11.5 X10*3/uL (4.8-10.8)
[2022-05-24 09:27] VITALS: BP 142/100; PULSE 69; RESP 16; TEMP 36.7; O2SAT 98
--- NOTE | 2022-05-24 09:34 | PC.NURSE ---
Pt reports being unable to sleep x3 days d/t abd pain. States he vomited blood this morning. IV established, labs drawn and sent. Medicated per the JUL.
--- NOTE | 2022-05-24 09:38 | PC.NURSE ---
Pt taken for CT scan
[2022-05-24 09:42] LABS: Alanine Aminotransferase 33 U/L (0-40); Albumin Level 4.6 g/dL (3.5-5.0); Alkaline Phosphatase 123 U/L (39-117); Aspartate Amino Transferase 22 U/L (5-37); Bilirubin Direct < 0.2 mg/dL (0.0-0.5); Bilirubin Total 0.3 mg/dL (0.0-1.0); Total Protein 7.9 g/dL (6.5-8.0)
[2022-05-24 09:44] LABS: Alanine Aminotransferase 33 U/L (0-40); Albumin Level 4.6 g/dL (3.5-5.0); Alkaline Phosphatase 121 U/L (39-117); Anion Gap 13 (12-20); Aspartate Amino Transferase 22 U/L (5-37); Bilirubin Total 0.3 mg/dL (0.0-1.0); Blood Urea Nitrogen 12 mg/dL (9-16); Carbon Dioxide 23 mmol/L (22-29); Chloride 105 mmol/L (96-108); Creatinine Clr Calc Pharmacy 159.2; Estimated Glomerular Filt Rate > 60; Ethanol < 10 mg/dL; Glucose Random 100 mg/dL (60-115); Lipase 15 U/L (8-78); Potassium 4.3 mmol/L (3.3-5.1); Sodium 137 mmol/L (135-145); Total Protein 7.8 g/dL (6.5-8.0)
[2022-05-24] MEDS: 0.9 % Sodium Chloride 1,000 ML 999 ML IV (10:34)
[2022-05-24 11:28] LABS: Lipase 15 U/L (8-78)
[2022-05-24 12:02] VITALS: BP 128/83; PULSE 60; RESP 16; O2SAT 98
[2022-05-24 12:52] VITALS: BP 143/93; PULSE 58; RESP 16; TEMP 36.5; O2SAT 98
--- NOTE | 2022-05-24 12:59 | PM.HPGS ---
History of Present Illness History of Present Illness Date of Service: 05/24/22 Chief complaint: Acute cholecystitis, cholelithiasis Narrative: Pieter Gil is a 32 year old male presenting with complaints of abdominal pain in the right upper quadrant for the past 4 days. He denies a previous history of similar symptoms and denies any inciting event. He reports the pain increases with eating and is associated with nausea and vomiting. He has not eaten much in the past 4 days but has kept liquids down. He denies fever, chills, diarrhea, or constipation. Abdominal pain is mainly in the right upper quadrant and he is able to feel a lump in this location just below the ribs. He presented to the emergency department this morning and was found to have multiple gallstones within the gallbladder with thickened gallbladder wall and a positive sonographic Barrientos sign suggestive of acute cholecystitis. To the surgical service for management of the acute cholecystitis. Review of Systems Review of Systems: Yes all other systems are reviewed and are negative Constitutional: Constitutional: Denies chills, Denies fever(s), Denies headache(s), Denies poor appetite and Denies weakness ENT: Denies headache(s) Cardiovascular: Cardiovascular: Denies chest pain, Denies irregular heart rhythm, Denies palpitations and Denies dyspnea Respiratory: Respiratory: Denies cough, Denies excessive phlegm production and Denies dyspnea Gastrointestinal: Gastrointestinal: Denies abdominal pain, Denies bloating, Denies change in bowel habits, Denies constipation, Denies heartburn, Denies diarrhea, Denies nausea and Denies vomiting Genitourinary: Genitourinary: Denies difficulty urinating and Denies urinary frequency Musculoskeletal: Musculoskeletal: Denies back pain, Denies muscle weakness and Denies numbness Integumentary/Breasts: Skin/Breast: Denies changing lesions and Denies unusual bruising Neurologic: Denies headache(s), Denies numbness, Denies paresthesias and Denies weakness Psychiatric: Psychiatric: Denies anxiety and Denies depression Endocrine: Endocrine: Denies palpitations Hematologic/Lymphatic: Hematologic/Lymphatic: Denies lymphadenopathy [facility] Social History Social History Smoked in Last 30 Days: Yes Substance Use Type: Marijuana Advance Directives: No Advance Directives Information Provided: No Meds Allergies Allergy/AdvReac Type Severity Reaction Status Date / Time acetaminophen [From TYLENOL] Allergy Unknown HIVES Verified 05/24/22 09:00 codeine [CODEINE] Allergy Unknown HIVES Verified 05/24/22 09:00 ibuprofen [From MOTRIN] Allergy Unknown HIVES Verified 05/24/22 09:00 Active Medications: Current Medications Hydromorphone HCl (Hydromorphone Hcl 0.5 Mg/0.5 Ml Syringe) 0.5 mg IVPUSH Q3H PRN; Protocol PRN Reason: Pain, Severe (Pain Scale 7-10) Dextrose/Lactated Ringer's (D5lr) 1,000 mls @ 125 mls/hr IVCONT .Q8H JOSE Piperacillin Sod/Tazobactam (Sod 3.375 gm/ Sodium Chloride) 50 mls @ 100 mls/hr IV Q6H JOSE Ondansetron HCl (Ondansetron Hcl 4 Mg/2 Ml Vial) 4 mg IVPUSH QID PRN PRN Reason: Nausea Oxycodone HCl (Oxycodone Hcl Immed Release 5 Mg Tablet) 5 mg PO Q6H PRN PRN Reason: Pain, Severe (Pain Scale 7-10) Pharmacy Consult (Consult Rx Perform Med Rec) 1 each MISCELLANE ONCE PRN PRN Reason: Consult order Pharmacy Consult (Consult Rx Perform Med Rec) 1 each MISCELLANE ONCE PRN PRN Reason: Consult order Sodium Chloride (0.9 % Sodium Chloride Flush 3 Ml Syringe) 3 ml IVFLUSH QSHIFT JOSE Zolpidem Tartrate (Zolpidem Tartrate 5 Mg Tablet) 5 mg PO BEDTIME PRN PRN Reason: Insomnia Physical Exam Vital Signs: Vital Signs: Last Vital Signs Temp 98.1 F 05/24/22 09:27 Pulse 60 05/24/22 12:02 Resp 16 05/24/22 12:02 BP 128/83 05/24/22 12:02 Pulse Ox 98 05/24/22 12:02 O2 Del Method 05/24/22 12:02 BMI result Body Mass Index 33.5 Const: General: cooperative and no acute distress Nutritional Appearance: well nourished Orientation/consciousness: patient oriented x3 Limitations: no limitations HEENT: Head: Yes normocephalic and Yes atraumatic Ears: hearing grossly normal bilaterally Resp: Effort & Inspection: normal respiratory effort, no audible wheezes, no cough and no respiratory distress Cardio: Jugular venous distension: no JVD GI: Inspection: Yes normal to inspection Palpation (GI): Soft to palpation, Tenderness to palpation present (GI) in the RUQ and Barrientos's sign positive; with no rebound tenderness and Rovsing's sign negative, no guarding, not rigid and No hepatosplenomegaly present Percussion: Yes normal to percussion Auscultation: normal bowel sounds Rectal Exam - Male: Yes deferred Skin: Other: Warm, dry, no rash Neuro: General: patient oriented x3 Extrem: General: Yes no clubbing, cyanosis or edema Results Results Labs: Short CBC 05/24/22 Range/Units 09:20 WBC 11.5 H (4.8-10.8) X10*3/uL Hgb 15.7 (14.0-18.0) g/dl Hct 47.0 (42.0-52.0) % Plt Count 324 (160-400) X10*3/uL BMP 05/24/22 09:20 Sodium 137 Potassium 4.3 Chloride 105 Carbon Dioxide 23 BUN 12 Creatinine 0.82 Calcium 10.0 Liver Function 05/24/22 05/24/22 Range/Units 09:20 09:20 Total Bilirubin 0.3 0.3 (0.0-1.0) mg/dL Direct Bilirubin < 0.2 (0.0-0.5) mg/dL AST 22 22 (5-37) U/L ALT 33 33 (0-40) U/L Alkaline Phosphatase 123 H 121 H (39-117) U/L Albumin 4.6 4.6 (3.5-5.0) g/dL Abdomen CT scan report/results: image reviewed CT scan - pelvis: image reviewed Abdominal ultrasound report/results: image reviewed Assessment and Plan (1) Cholecystitis, acute with cholelithiasis: Qualifiers: Biliary obstruction: without biliary obstruction Qualified Code(s): K80.00 - Calculus of gallbladder with acute cholecystitis without obstruction Status: Acute Plan 32-year-old male patient presenting with complaints of abdominal pain in the right upper quadrant for the past 4 days. Patient was found to have multiple gallstones within the gallbladder with thickened gallbladder wall and a sonographic Barrientos sign. On examination the patient is tender in the right upper quadrant with a positive Barrientos sign and a fullness in the right upper quadrant consistent with a thickened, dilated gallbladder. I recommended admission and laparoscopic or possible open cholecystectomy. After discussion of the procedure, risks, and alternatives, he consents to the surgery. He has been added onto the operative schedule for tomorrow morning. He will keep be kept on clear liquids tonight, NPO after midnight. He will be started on Zosyn and kept on IV fluids. Time Spent With Patient Time: Total time managing care of this patient today _30_ minutes. Quality Stroke Does the patient have a stroke diagnosis?: No VTE Prior VTE?: No VTE Risk Level:: Surgical - moderate VTE Device Contraindication: N/A - Device Ordered VTE Drug Contraindication: Treatment Not Indicated Procedures Date of Service Date of Service: 05/24/22
[2022-05-24 13:08] LABS: COVID-19 Test Negative (Negative); IDNOW Serial# BCCEAD1C
[2022-05-24] MEDS: Dextrose 5 % and Lactated Ring 1,000 ML 125 ML IVCONT ×2 (14:15→22:24)
[2022-05-24] MEDS: Piperacillin Sodium/Tazobactam 3.375 GM in 0.9 % Sodium Chloride 50 ML IV ×2 (14:35→19:57)
--- NOTE | 2022-05-24 16:15 | PHA.MEDREC ---
Pharmacy Consult ? Medication Reconciliation Pharmacy has completed the medication reconciliation. Spoke to [facility] for med list
[2022-05-24] MEDS: HYDROmorphone HCl 0.5 MG/0.5 ML SYRINGE IVPUSH (16:53)
[2022-05-24] MEDS: ondansetron HCL 4 MG/2 ML VIAL IVPUSH (16:53)
[2022-05-24] MEDS: oxyCODONE HCl Immed Release 5 MG TABLET PO (18:09)
[2022-05-24 19:57] VITALS: BP 132/81; PULSE 55; RESP 18; TEMP 36.3; O2SAT 98
[2022-05-25] VITALS (13 sets, daily range): BP systolic 118–170; BP diastolic 59–105; PULSE 60–88; RESP 17–18; TEMP 36–36.7; O2SAT 96–99; BMI 33.5
[2022-05-25] MEDS: Piperacillin Sodium/Tazobactam 3.375 GM in 0.9 % Sodium Chloride 50 ML IV ×2 (01:24→09:20)
[2022-05-25] MEDS: HYDROmorphone HCl 0.5 MG/0.5 ML SYRINGE IVPUSH ×5 (03:55→20:55)
--- NOTE | 2022-05-25 08:56 | MHC.CM.PN ---
Addendum entered by Khushboo Agustin RN 05/25/22 09:08: PCP VERIFIED; SYDNIE FLANAGAN Original Note: PATIENT LIVES WITH HIS /NEW HCP (NOW IN CHART AND ALLSCRIPTS) HE IS FULLY INDEPENDENT WITH ALL ADLS. NO DME OR VNA SERVICES HE DOES NOT FEEL HE WILL NEED ANY SERVICES AT DISCHARGE. HE HAS NOT BEEN VACCINATED AGAINST COVID-19 HE RECENTLY ACQUIRED A NEW DR Walt [facility] IN [place] BUT DOES NOT RECALL THE NAME OF HIS PCP PLAN IS HOME - SELF CARE
[2022-05-25] MEDS: oxyCODONE HCl Immed Release 5 MG TABLET PO ×2 (09:13→17:14)
[2022-05-25] MEDS: 0.9 % Sodium Chloride Flush 3 ML SYRINGE IVFLUSH ×3 (09:21→20:55)
--- NOTE | 2022-05-25 10:28 | P.CONAN_ITS ---
HPI - Anesthesia Eval Consult details Narrative: Lap. cholecystectomy PMFSH Active Problems Active Problems: All Active Problems (Updated 05/24/22 @ 15:05 by TREMAYNE Valdes) Cholecystitis, acute with cholelithiasis (Acute) Family History Family history of problems with anesthesia: No Surgical History History of Problems with Anesthesia: No Social History Social History Household Members: Spouse Housing: Apartment Do you presently have visiting nurse or other home services: No Patient Tobacco Use Status: Current everyday Tobacco user Tobacco use type: Cigarette Cigarettes Per Day: 3 e-Cigarette/Vaping Use: Currently Using Substance Use Type: Marijuana service: No Current occupational status: disabled Meds Allergies Allergy/AdvReac Type Severity Reaction Status Date / Time acetaminophen [From TYLENOL] Allergy Unknown HIVES Verified 05/24/22 09:00 codeine [CODEINE] Allergy Unknown HIVES Verified 05/24/22 09:00 ibuprofen [From MOTRIN] Allergy Unknown HIVES Verified 05/24/22 09:00 Active Medications: Current Medications Hydromorphone HCl (Hydromorphone Hcl 0.5 Mg/0.5 Ml Syringe) 0.5 mg IVPUSH Q3H PRN; Protocol PRN Reason: Pain, Severe (Pain Scale 7-10) Last Admin: 05/25/22 09:10 Dose: 0.5 mg Dextrose/Lactated Ringer's (D5lr) 1,000 mls @ 125 mls/hr IVCONT .Q8H [facility] Last Infusion: 05/25/22 09:25 Dose: Infused Piperacillin Sod/Tazobactam (Sod 3.375 gm/ Sodium Chloride) 50 mls @ 100 mls/hr IV Q6H [facility] Last Infusion: 05/25/22 10:01 Dose: Infused Ondansetron HCl (Ondansetron Hcl 4 Mg/2 Ml Vial) 4 mg IVPUSH Q8H PRN PRN Reason: Nausea Last Admin: 05/24/22 16:53 Dose: 4 mg Oxycodone HCl (Oxycodone Hcl Immed Release 5 Mg Tablet) 5 mg PO Q6H PRN PRN Reason: Pain, Severe (Pain Scale 7-10) Last Admin: 05/25/22 09:13 Dose: 5 mg Pharmacy Consult (Consult Rx Perform Med Rec) 1 each MISCELLANE ONCE PRN PRN Reason: Consult order Sodium Chloride (0.9 % Sodium Chloride Flush 3 Ml Syringe) 3 ml IVFLUSH QSHIFT [facility] Last Admin: 05/25/22 09:21 Dose: 3 ml Zolpidem Tartrate (Zolpidem Tartrate 5 Mg Tablet) 5 mg PO BEDTIME PRN PRN Reason: Insomnia Home Medications Medication Instructions Recorded Confirmed Last Taken Type albuterol sulfate 90 mcg/actuation 2 puff inhalation Q4H PRN 05/24/22 05/24/22 Unknown History aerosol inhaler (Ventolin HFA) Shortness Of Breath Or Wheezing clonidine HCl 0.1 mg tablet 0.1 mg PO TID PRN Anxiety 05/24/22 05/24/22 Unknown History olanzapine 5 mg tablet 5 mg PO BEDTIME 05/24/22 05/24/22 Unknown History sertraline 100 mg tablet 150 mg PO DAILY 05/24/22 05/24/22 Unknown History zolpidem 10 mg tablet (Ambien) 10 mg PO BEDTIME PRN Insomnia 05/24/22 05/24/22 Unknown History Exam Exam Date and Time: May 25, 2022 1028 Height,Weight and Vital Signs: Height 5 ft 11 in Weight 108.862 kg Last Vital Signs Temp 97.4 F 05/25/22 09:49 Pulse 61 05/25/22 09:49 Resp 18 05/25/22 09:49 BP 163/105 H 05/25/22 09:49 Pulse Ox 98 05/25/22 09:49 O2 Del Method 05/25/22 09:49 Pertinent Lab Results Pertinent Lab Results: Laboratory Tests 05/24/22 05/24/22 05/24/22 09:20 09:20 09:20 WBC 11.5 H RBC 5.65 Hgb 15.7 Hct 47.0 MCV 83.2 MCH 27.8 MCHC 33.4 RDW 13.3 Plt Count 324 MPV 9.2 L Immature Gran % (Auto) 0.3 Neut % (Auto) 60.6 Lymph % (Auto) 27.8 Cook % (Auto) 9.5 Eos % (Auto) 1.4 Baso % (Auto) 0.4 Lymph # (Auto) 3.2 Cook # (Auto) 1.1 Eos # (Auto) 0.2 Baso # (Auto) 0.1 Abs Immat Gran (auto) 0.04 H Absolute Neuts (auto) 6.9 Absolute Nucleated RBC 0.000 Nucleated RBC % (auto) 0.0 Sodium 137 Potassium 4.3 Chloride 105 Carbon Dioxide 23 Anion Gap 13 BUN 12 Creatinine 0.82 Estim Creat Clear Calc 159.2 Estimated GFR > 60 Random Glucose 100 Calcium 10.0 Total Bilirubin 0.3 0.3 Direct Bilirubin < 0.2 AST 22 22 ALT 33 33 Alkaline Phosphatase 123 H 121 H Total Protein 7.9 7.8 Albumin 4.6 4.6 Lipase 15 15 Ethyl Alcohol < 10 COVID-19 ([facility]) COVID-19 Clin Com 05/24/22 12:38 WBC RBC Hgb Hct MCV MCH MCHC RDW Plt Count MPV Immature Gran % (Auto) Neut % (Auto) Lymph % (Auto) Cook % (Auto) Eos % (Auto) Baso % (Auto) Lymph # (Auto) Cook # (Auto) Eos # (Auto) Baso # (Auto) Abs Immat Gran (auto) Absolute Neuts (auto) Absolute Nucleated RBC Nucleated RBC % (auto) Sodium Potassium Chloride Carbon Dioxide Anion Gap BUN Creatinine Estim Creat Clear Calc Estimated GFR Random Glucose Calcium Total Bilirubin Direct Bilirubin AST ALT Alkaline Phosphatase Total Protein Albumin Lipase Ethyl Alcohol COVID-19 ([facility]) Negative COVID-19 Clin Com See Note Airway Mallampati Class: I TM Dist: >3cm Neck ROM: Full Loose/Missing/Broken Teeth: No Heart: ok Lungs: ok Assessment and Plan Final Anesthetic Review Family History of Problems with Anesthesia: No History of Problems with Anesthesia: No NPO: Yes ASA Class: II Final Preanesthetic Review: No Changes in Pt Med Stat, Meds/Allgs Chart Reviewed, Consent Obtained/Reviewed and Anes Risks/Benef Reviewed Patient Risk: Intermediate Procedure Risk: Intermediate Anesthetic Plan Anesthetic Plan: GA and Agree w/ Assess. and Plan Disposition: Standard PACU
--- NOTE | 2022-05-25 11:13 | MHC.CLN ---
PT REPORTED 24-33# WT LOSS ON ADMISSION ASSESSMENT CURRENT WT 108.8KG (05/25/22) PREVIOUS WT HX 97.5KG (04/20/22) PT WITH 11% SIGNIFICANT WT GAIN X 30 DAYS; BMI 33.5 INIDCATES OBESE FOR HT NO NEW ORDERS AT THIS TIME RD TO FOLLOW WEEKLY
--- NOTE | 2022-05-25 12:46 | W.PM.OPN ---
Operative Note Operative Note Date of Service: 05/25/22 Narrative: Preoperative diagnosis: Acute cholecystitis, cholelithiasis Postoperative diagnosis: Same Procedure: Laparoscopic cholecystectomy Surgeon: Joey Nieto MD Police Chief: JOANIE Conti Anesthesia: General endotracheal Indications for procedure:32 year old male with pain in the right upper quadrant of 4 days duration found to haveA thickened gallbladder wall by ultrasound and multiple gallstones. There was a positive sonographic Barrientos sign consistent with acute cholecystitis. He presents for laparoscopic cholecystectomy. Operative findings: Acutely inflamed gallbladder with multiple gallstones. Specimen: gallbladder Estimated blood loss: 20 mL Complications: none Procedure details: Patient was brought to the OR and placed in a supine position. After administering general anesthesia the patient's abdomen was prepped with ChloraPrep and draped in a sterile fashion. Local anesthesia consisting of 0.5% Sensorcaine without epinephrine was infiltrated in a periumbilical region. A 5 mm incision was made above the umbilicus in a transverse fashion. The Veress needle was then inserted while elevating abdominal cavity with towel clips. After positive drop test the abdomen was insufflated to a pressure of 15 mm of mercury. The Veress needle was then removed and a 5 mm trocar inserted. The camera was inserted in the abdomen explored. A 12 mm trocar was then placed in the epigastrium. Two 5 mm trocars placed in the right upper quadrant by the veterinary technician assistant. The patient was placed in reverse Trendelenburg positioning and rotated to the left. The gallbladder was grasped with the fundus and retracted cephalad by the veterinary technician assistant. The infundibulum was then grasped and retracted away from the liver bed, also by the veterinary technician assistant. The Dolphin dissected was then used by the surgeon to dissect the peritoneum off the infundibulum to reveal the junction with the cystic duct. Cystic artery was noted slightly medial and posterior to the cystic duct. After obtaining a critical view the cystic duct was doubly clipped and divided. The cystic artery was then doubly clipped and divided. The gallbladder was then dissected off the liver bed using electrocautery with an L hook. Hemostasis was assured all times using the electrocautery. When the gallbladder is completely dissected off the liver bed was placed in an Endo-Catch bag and brought out through the epigastric incision. The gallbladder was sent to pathology for further examination. The abdomen was then re-examined. The liver bed was irrigated and suctioned dry. No bleeding or bile leak could be identified. A small piece of Surgicel was placed at the liver bed which was raw due to the acute inflammation. CO2 was then evacuated and all trocars removed. Fascia was closed at the epigastric incision using a [id number] 0 Polysorb suture. Skin was closed in all incisions using a subcuticular 4 0 Polysorb suture by both the surgeon and veterinary technician assistant. Sterile dressings consisting of Steri-Strips, 2 x 2 gauze, and Tegaderm were then applied. The patient tolerated the procedure well. Sponge instrument and needle counts reported as correct. The patient was transferred to PACU in stable condition.
[2022-05-25] MEDS: Dextrose 5 % and Lactated Ring 1,000 ML 125 ML IVCONT ×3 (15:30→21:01)
--- NOTE | 2022-05-25 18:38 | PC.NURSE ---
Pt is status post Lap Kaci this am with 4 incision to the right side ABD. Dressings intact but have strike through to 2 of them. Pt C/O 02/20 pain afetr his return to the floor at 1430. PRN Morphine and 5mg Oxy given with good effect. Pt ambulating to the BR with stand by assist and his helping him out.
[2022-05-25] MEDS: OLANZapine 5 MG TABLET PO (20:56)
[2022-05-25] MEDS: cloNIDine HCL 0.1 MG TABLET PO (20:56)
[2022-05-25] MEDS: Zolpidem Tartrate 5 MG TABLET 10 MG PO (20:56)
[2022-05-26] MEDS: oxyCODONE HCl Immed Release 5 MG TABLET PO ×2 (03:16→08:14)
[2022-05-26 03:21] VITALS: BP 118/56; PULSE 63; RESP 14; TEMP 36.5; O2SAT 96
[2022-05-26] MEDS: Dextrose 5 % and Lactated Ring 1,000 ML 125 ML IVCONT (05:26)
[2022-05-26 07:49] VITALS: BP 139/79; PULSE 60; RESP 15; TEMP 36.7; O2SAT 96
--- NOTE | 2022-05-26 07:52 | PM.PNGS ---
Subjective Subjective Date of Service: 05/26/22 Interval history: Pod 1 following laparoscopic cholecystectomy for acute cholecystitis. Patient has some incisional pain but feels much improved from yesterday. He tolerated regular diet without nausea or vomiting. He was able to go to the bathroom without difficulties. He feels ready for discharge. Physical Exam Vital Signs: Vital Signs: Last Vital Signs Temp 97.7 F 05/26/22 03:21 Pulse 63 05/26/22 03:21 Resp 14 05/26/22 03:21 BP 118/56 L 05/26/22 03:21 Pulse Ox 96 05/26/22 03:21 O2 Del Method 05/26/22 03:21 BMI result Body Mass Index 33.5 Const: General: comfortable and no acute distress Nutritional Appearance: well nourished Orientation/consciousness: patient oriented x3 Limitations: no limitations Resp: Effort & Inspection: normal respiratory effort Auscultation: clear to auscultation bilaterally GI: Other: Soft, nondistended, incisions with some bloody discharge but otherwise clean and intact. Skin: Other: Warm, dry, no rash Neuro: General: patient oriented x3 Extrem: Other: No edema Objective Data Active Medications Albuterol Sulfate (Albuterol Sulfate 90 Mcg 8 Gm Inhaler) 2 puff INHALE Q4H PRN PRN Reason: Shortness Of Breath Or Wheezing Clonidine HCl (Clonidine Hcl 0.1 Mg Tablet) 0.1 mg PO TID PRN; Protocol PRN Reason: Anxiety Last Admin: 05/25/22 20:56 Dose: 0.1 mg Documented By: ISIDORO Hydromorphone HCl (Hydromorphone Hcl 0.5 Mg/0.5 Ml Syringe) 0.5 mg IVPUSH Q3H PRN; Protocol PRN Reason: Pain, Severe (Pain Scale 7-10) Last Admin: 05/25/22 20:55 Dose: 0.5 mg Documented By: ISIDORO Dextrose/Lactated Ringer's (D5lr) 1,000 mls @ 125 mls/hr IVCONT .Q8H JOSE Last Admin: 05/26/22 05:26 Dose: 125 mls/hr Documented By: ISIDORO Promethazine HCl 12.5 mg/ (Sodium Chloride) 50.5 mls @ 202 mls/hr IV Q6H PRN PRN Reason: Nausea Olanzapine (Olanzapine 5 Mg Tablet) 5 mg PO BEDTIME [facility] Last Admin: 05/25/22 20:56 Dose: 5 mg Documented By: ISIDORO Oxycodone HCl (Oxycodone Hcl Immed Release 5 Mg Tablet) 5 mg PO Q6H PRN PRN Reason: Pain, Severe (Pain Scale 7-10) Last Admin: 05/26/22 03:16 Dose: 5 mg Documented By: ISIDORO Pharmacy Consult (Consult Rx Perform Med Rec) 1 each MISCELLANE ONCE PRN PRN Reason: Consult order Sertraline HCl (Sertraline Hcl 50 Mg Tablet) 150 mg PO DAILY [facility] Sodium Chloride (0.9 % Sodium Chloride Flush 3 Ml Syringe) 3 ml IVFLUSH QSHIFT [facility] Last Admin: 05/25/22 20:55 Dose: 3 ml Documented By: ISIDORO Zolpidem Tartrate (Zolpidem Tartrate 5 Mg Tablet) 10 mg PO BEDTIME PRN PRN Reason: Insomnia Last Admin: 05/25/22 20:56 Dose: 10 mg Documented By: ISIDORO Labs 05/24/22 09:20 05/24/22 09:20 Procedures Date of Service Date of Service: 05/26/22 Progress Note: A&P Assessment and plan (1) Cholecystitis, acute with cholelithiasis: Status: Acute Plan 32-year-old male patient with recent history of abdominal pain in the right upper quadrant found to have acute cholecystitis due to cholelithiasis. He is now pod 1 following laparoscopic cholecystectomy. Tolerated the procedure well and is tolerating a regular diet. He will be discharged to home with follow-up in the office in 1 week. He was advised to remain on a low-fat diet for the next month and avoid lifting greater than 10 lb for the next 2 weeks. Time Spent With Patient Time: Total time managing care of this patient today ____ minutes. No Severe Sepsis: No Severe Sepsis Quality Stroke Does the patient have a stroke diagnosis?: No VTE Prior VTE?: No VTE Risk Level:: Surgical - moderate VTE Device Contraindication: N/A - Device Ordered VTE Drug Contraindication: Treatment Not Indicated
[2022-05-26] MEDS: Sertraline HCL 50 MG TABLET 150 MG PO (08:07)
[2022-05-26] MEDS: 0.9 % Sodium Chloride Flush 3 ML SYRINGE IVFLUSH (08:07)
--- NOTE | 2022-05-26 08:19 | HO.POSTANES ---
Post Anesthesia Evaluation Post Anesthesia Evaluation Vital Signs: Vital Signs Temp Pulse Resp BP Pulse Ox O2 Del Method 05/26/22 07:49 98.0 F 60 15 139/79 96 Room Air 05/26/22 03:21 97.7 F 63 14 118/56 L 96 Room Air Anesthesia: General Endotracheal-GETA Mental Status: Awake Pain Control: Satisfactory Nausea/Vomiting: None Hydration: Adequate Anesthesia-Related Issues: No Anes. Related Issues
--- NOTE | 2022-05-26 08:48 | MHC.CM.PN ---
PT TO DC HOME TODAY WITH NO SERVICES PT TO ARRANGE TRANSPORT
--- NOTE | 2022-05-26 09:53 | PM.DS ---
DS: Providers Provider Date of Service: 05/26/22 Date of admission: 05/24/22 12:52 Date of discharge: 05/26/22 Primary care physician: MARIETTA Greene Attending physician on admission: Joey Nieto Attending physician on discharge: Joey Nieto DS: Diagnosis Discharge Diagnosis (1) Cholecystitis, acute with cholelithiasis: Status: Acute DS: Summary Hospital Course Hospital Course: HPI AT ADMISSION: Pieter Gil is a 32 year old male presenting with complaints of abdominal pain in the right upper quadrant for the past 4 days.? He denies a previous history of similar symptoms and denies any inciting event.? He reports the pain increases with eating and is associated with nausea and vomiting.? He has not eaten much in the past 4 days but has kept liquids down.? He denies fever, chills, diarrhea, or constipation.? Abdominal pain is mainly in the right upper quadrant and he is able to feel a lump in this location just below the ribs.? He presented to the emergency department this morning and was found to have multiple gallstones within the gallbladder with thickened gallbladder wall and a positive sonographic Barrientos sign suggestive of acute cholecystitis.? HOSPITAL COURSE:He was admitted to the surgical service for management of the acute cholecystitis. He was kept NPO, on IVF and started on IV zosyn. On 05/25/22, a laparoscopic cholecystectomy was performed by Dr. Nieto without complication. The patient tolerated the procedure well. He had an uncomplicated recovery course. On POD #1, he felt well with mild incisional pain and tolerating a solid diet without nausea or vomiting. He was moving his bowels. His abdomen was benign with appropriate post op tenderness and dressings intact. He felt ready for discharge to home. He was discharged to home on 05/26/22 in stable condition. He is to follow up with Dr. Nieto in office in 1 week. Status at Discharge Functional status at discharge: independent ambulation Overall status at discharge: patient is progressing back to baseline Time Spent with Patient Time attestation: Total time managing care of this patient today ____ minutes. Discharge coordination time: Less than 30 minutes Quality: Safe Use of Opioids Does Pt have an Active Cancer Diagnosis on the Problem List?: No Quality: Stroke Does the patient have a stroke diagnosis?: No Physical Exam Vital Signs: Vital Signs: Last Vital Signs Temp 98.0 F 05/26/22 07:49 Pulse 60 05/26/22 07:49 Resp 15 05/26/22 07:49 BP 139/79 05/26/22 07:49 Pulse Ox 96 05/26/22 07:49 O2 Del Method 05/26/22 07:49 BMI result Body Mass Index 33.5 Const: General: comfortable, no acute distress and alert Orientation/consciousness: patient oriented x3 Resp: Effort & Inspection: normal respiratory effort GI: Inspection: No distended and Yes incision (dressings c/d/i, epigastric dressing changed) Palpation (GI): Soft to palpation, Tenderness to palpation present (GI) (mild, incisional), no guarding and not rigid Percussion: Yes normal to percussion Skin: General skin exam: no rashes or lesions noted Neuro: General: patient oriented x3 DS: Data Data Completed and Pending Pending studies at discharge: Pending at discharge 05/25/22 12:29 Surgical [PTH] Routine Discharge Plan Discharge Anticipated Discharge Date/Time: 05/26/22 07:54 Patient Disposition: Home, Self-Care Discharge Diagnosis: Acute cholecystitis due to cholelithiasis Referrals: Joey Nieto MD [Physician] - 1 Week Ama Valderrama FNP [Primary Care Provider] - 1 Week Discharge Medications: New oxycodone 5 mg tablet 5 mg PO Q4H PRN (Reason: pain (scale score 7-10)) Qty: 24 0RF Rx Instructions: Partial Fill upon patient request. Continued clonidine HCl 0.1 mg Tablet 0.1 mg PO TID PRN (Reason: Anxiety) sertraline 100 mg Tablet 150 mg PO DAILY olanzapine 5 mg Tablet 5 mg PO BEDTIME zolpidem [Ambien] 10 mg Tablet 10 mg PO BEDTIME PRN (Reason: Insomnia) albuterol sulfate [Ventolin HFA] 90 mcg/actuation Hfa Aerosol Inhaler 2 puff INHALATION Q4H PRN (Reason: Shortness Of Breath Or Wheezing) Discharge Orders: Discharge Order (Routine); Ordered 05/26/22 Ordered By: Joey Nieto Diet: Low fat, low cholesterol Activity on Discharge: No heavy lifting Stand Alone Forms: Patient Portal Discharge page, Work/School Release Care Plan Goals: Return to normal activity and diet Health Concerns: Abdominal pain right upper quadrant Plan of Treatment: Laparoscopic cholecystectomy on 05/25/2022 Assessment: Acute cholecystitis due to cholelithiasis
== END 2022-05-26 10:11 | disposition home or self-care (01) | DRG 263 ==
LOC: HO.ED 12:59 → HO.EDOVER 12:59 → HO.S3 15:17
PROVIDERS: Physician Assistant Medical; Admitting Provider Surgery; Emergency Provider Student in an Organized Health Care Education/Training Program; PCP Nurse Practitioner Family; Visit Provider Surgery
PROC: 0FT44ZZ Resection of Gallbladder, Percutaneous Endoscopic Approach (ICD-10-PCS; CPT 47562; principal; 2022-05-25 10:30)
DX: K80.00 Calculus of gallbladder with acute cholecystitis without obstruction (principal); F17.210 Nicotine dependence, cigarettes, uncomplicated; Z20.822 Contact with and (suspected) exposure to COVID-19; Z71.6 Tobacco abuse counseling; Z88.5 Allergy status to narcotic agent; Z88.6 Allergy status to analgesic agent; Z79.899 Other long term (current) drug therapy
CPT/HCPCS: 36415; 74176; 76705; 80053; 80076; 82077; 83690; 85025; 87635; 88304; 93005; 99285; J1100; J1170; J2250; J2405; J2543; J2550; J2795; J3010

== ENCOUNTER 2022-07-02 15:51 | Emergency (ER) | payer MEDICAID, SELFPAY ==
--- NOTE | 2022-07-02 16:10 | ED.ABDPAIN ---
HPI - Abdominal Pain General Chief Complaint: Abdominal Pain Stated Complaint: abdominal pain Related Data Home Medications ?Medication ?Instructions ?Recorded ?Confirmed albuterol sulfate 90 mcg/actuation 2 puff inhalation Q4H PRN 05/24/22 05/24/22 aerosol inhaler (Ventolin HFA) Shortness Of Breath Or Wheezing clonidine HCl 0.1 mg tablet 0.1 mg PO TID PRN Anxiety 05/24/22 05/24/22 olanzapine 5 mg tablet 5 mg PO BEDTIME 05/24/22 05/24/22 sertraline 100 mg tablet 150 mg PO DAILY 05/24/22 05/24/22 zolpidem 10 mg tablet (Ambien) 10 mg PO BEDTIME PRN Insomnia 05/24/22 05/24/22 Previous Rx's ?Medication ?Instructions ?Recorded oxycodone 5 mg tablet 5 mg PO Q4H PRN pain (scale score 05/26/22 7-10) #24 tabs amoxicillin 875 mg-potassium 1 tab PO BID 7 days #14 tabs 09/05/22 clavulanate 125 mg tablet ciprofloxacin 0.3 %-dexamethasone 4 drp otic (ears) BID 7 days #7.5 09/05/22 0.1 % ear drops,suspension mL (Ciprodex) Allergies Allergy/AdvReac Type Severity Reaction Status Date / Time ondansetron [From Zofran] Allergy Mild Rash Verified 05/25/22 12:46 acetaminophen [From TYLENOL] Allergy Unknown HIVES Verified 05/24/22 09:00 codeine [CODEINE] Allergy Unknown HIVES Verified 05/24/22 09:00 ibuprofen [From MOTRIN] Allergy Unknown HIVES Verified 05/24/22 09:00 [facility] Past Medical History Medical History Cholecystitis, acute with cholelithiasis Social History Social History Household Members: Spouse Housing: Apartment Do you presently have visiting nurse or other home services: No Alcohol intake: never Patient Tobacco Use Status: Current everyday Tobacco user Tobacco use type: Cigarette Cigarettes Per Day: 3 e-Cigarette/Vaping Use: Currently Using Substance Use Type: Marijuana Advance Directives: Yes Advance Directives on File: Yes Advance Directives Date on File: 05/29/22 service: No Current occupational status: disabled Physical Exam ED Vital Signs: Vital Signs - 24 hr 07/02/22 16:47 Temperature 98.2 F Pulse Rate 81 Respiratory Rate 18 Blood Pressure 152/96 H Pulse Oximetry 96 Oxygen Delivery Method Room Air BMI result Body Mass Index 32.3 Course Course Course Narrative: This is an RME: Additional HPI, ROS, PE not included below will be deferred to primary provider. 32 year old male no significant medical hx presents w/ RLQ pain per EMS since this AM w/ associated [place] and vomiting blood , not tollerating PO. Gallbladder surgery around a month ago. No complications. Still has appendix. VS for EMS 167/99 HR 80 RR 18 O2 100& on RA POC 125 per EMS Medical Decision Making Lab Data 07/02/22 16:28 07/02/22 16:28 Labs: Lab Results 07/02/22 Range/Units 16:28 WBC 13.9 H (4.8-10.8) X10*3/uL RBC 6.09 H (4.60-5.80) X10*6/uL Hgb 16.3 (14.0-18.0) g/dl Hct 49.8 (42.0-52.0) % MCV 81.8 (80.0-98.0) fL MCH 26.8 L (27.0-33.0) pg MCHC 32.7 (31.0-36.0) g/dl RDW 14.0 (11.0-16.0) % Plt Count 303 (160-400) X10*3/uL MPV 9.7 (9.4-12.4) fL Immature Gran % (Auto) 0.4 (0.0-0.4) % Neut % (Auto) 68.9 (45-73) % Lymph % (Auto) 21.3 (20-40) % [place] % (Auto) 7.8 (2-11) % Eos % (Auto) 1.3 (0-4) % Baso % (Auto) 0.3 (0-2) % Lymph # (Auto) 3.0 (1.2-4.9) X10*3/uL [place] # (Auto) 1.1 (0.1-1.2) X10*3/uL Eos # (Auto) 0.2 (0.0-0.4) X10*3/uL Baso # (Auto) 0.0 (0.0-0.2) X10*3/uL Abs Immat Gran (auto) 0.05 H (0.00-0.03) X10*3/uL Absolute Neuts (auto) 9.6 H (2.0-8.3) x10*3/uL Absolute Nucleated RBC 0.000 (0.0-0.012) X10*3/uL Nucleated RBC % (auto) 0.0 (0.0-0.2) /100WBC Sodium 138 (135-145) mmol/L Potassium 4.6 (3.3-5.1) mmol/L Chloride 106 (96-108) mmol/L Carbon Dioxide 22 (22-29) mmol/L Anion Gap 15 (12-20) BUN 7 L (9-16) mg/dL Creatinine 0.75 (0.5-1.4) mg/dL Estim Creat Clear Calc 166.1 Estimated GFR > 60 Random Glucose 101 (60-115) mg/dL Calcium 10.0 (8.4-10.2) mg/dL Magnesium 1.8 (1.6-2.6) mg/dL Total Bilirubin 0.7 (0.0-1.0) mg/dL AST 37 (5-37) U/L ALT 70 H (0-40) U/L Alkaline Phosphatase 119 H (39-117) U/L Total Protein 8.0 (6.5-8.0) g/dL Albumin 4.7 (3.5-5.0) g/dL Lipase 12 (8-78) U/L COVID-19 (FAUZIA) Negative (Negative) COVID-19 Clin Com See Note Discharge Plan Discharge Clinical Impression: Eloped from emergency department Patient Disposition: Elopement Prescriptions: No Action clonidine HCl 0.1 mg Tablet 0.1 mg PO TID PRN (Reason: Anxiety) sertraline 100 mg Tablet 150 mg PO DAILY olanzapine 5 mg Tablet 5 mg PO BEDTIME zolpidem [Ambien] 10 mg Tablet 10 mg PO BEDTIME PRN (Reason: Insomnia) albuterol sulfate [Ventolin HFA] 90 mcg/actuation Hfa Aerosol Inhaler 2 puff INHALATION Q4H PRN (Reason: Shortness Of Breath Or Wheezing) oxycodone 5 mg tablet 5 mg PO Q4H PRN (Reason: pain (scale score 7-10)) Qty: 24 0RF Rx Instructions: Partial Fill upon patient request. ciprofloxacin-dexamethasone [Ciprodex] 0.3-0.1 % drops,suspension 4 drp otic (ears) BID 7 Days Qty: 7.5 0RF amoxicillin-pot clavulanate 875-125 mg tablet 1 tab PO BID 7 Days Qty: 14 0RF Interventions: ED Discharge Assessment Last Done: 07/02/22 19:34 Discharge Date/Time: 07/02/22 19:34 Print Language: Kinyarwanda
[2022-07-02 16:37] LABS: MANUAL DIFF FLAG NO
[2022-07-02 16:39] LABS: Basophils Percent Auto 0.3 % (0-2); Eosinophils Absolute Auto 0.2 X10*3/uL (0.0-0.4); Eosinophils Percent Auto 1.3 % (0-4); Hematocrit 49.8 % (42.0-52.0); Hemoglobin 16.3 g/dl (14.0-18.0); Imm Gran Abs Auto 0.05 X10*3/uL (0.00-0.03); Imm Gran Pct Auto 0.4 % (0.0-0.4); Lymphocytes Percent Auto 21.3 % (20-40); Mean Corpuscular HGB Conc 32.7 g/dl (31.0-36.0); Mean Corpuscular Hemoglobin 26.8 pg (27.0-33.0); Mean Corpuscular Volume 81.8 fL (80.0-98.0); Mean Platelet Volume 9.7 fL (9.4-12.4); Monocytes Absolute Auto 1.1 X10*3/uL (0.1-1.2); Monocytes Percent Auto 7.8 % (2-11); Neutrophils Absolute Auto 9.6 x10*3/uL (2.0-8.3); Neutrophils Percent Auto 68.9 % (45-73); Platelet Count 303 X10*3/uL (160-400); Red Blood Count 6.09 X10*6/uL (4.60-5.80); White Blood Count 13.9 X10*3/uL (4.8-10.8)
[2022-07-02 16:47] VITALS: BP 152/96; PULSE 81; RESP 18; TEMP 36.8; O2SAT 96; BMI 32.3
[2022-07-02 16:52] LABS: COVID-19 Test Negative (Negative); IDNOW Serial# 55D5AD1C
[2022-07-02 16:57] LABS: Alanine Aminotransferase 70 U/L (0-40); Albumin Level 4.7 g/dL (3.5-5.0); Alkaline Phosphatase 119 U/L (39-117); Anion Gap 15 (12-20); Aspartate Amino Transferase 37 U/L (5-37); Bilirubin Total 0.7 mg/dL (0.0-1.0); Blood Urea Nitrogen 7 mg/dL (9-16); Carbon Dioxide 22 mmol/L (22-29); Chloride 106 mmol/L (96-108); Creatinine Clr Calc Pharmacy 166.1; Estimated Glomerular Filt Rate > 60; Glucose Random 101 mg/dL (60-115); Lipase 12 U/L (8-78); Magnesium 1.8 mg/dL (1.6-2.6); Potassium 4.6 mmol/L (3.3-5.1); Sodium 138 mmol/L (135-145)
== END 2022-07-02 19:34 | disposition left against medical advice (07) ==
PROVIDERS: Physician Assistant; Emergency Provider Emergency Medicine
DX: R10.13 Epigastric pain (principal); Z20.822 Contact with and (suspected) exposure to COVID-19; Z20.828 Contact with and (suspected) exposure to other viral communicable diseases; Z79.899 Other long term (current) drug therapy
CPT/HCPCS: 80053; 83690; 83735; 85025; 87635; 99282

== ENCOUNTER 2022-07-21 15:53 | Outpatient (REF) | payer MEDICAID, SELFPAY | END 2022-07-21 15:54 | disposition home or self-care (01) | LOC: HO.HOSX 15:53 | PROVIDERS: Visit Provider Physician Assistant | DX: Z13.89 Encounter for screening for other disorder (principal) ==

== ENCOUNTER 2022-07-30 02:55 | Emergency (ER) | payer MEDICAID, SELFPAY ==
[2022-07-30 02:58] VITALS: BP 155/102; PULSE 106; RESP 18; TEMP 36.2; O2SAT 97; BMI 33.2
--- NOTE | 2022-07-30 03:32 | ED.ABDPAIN ---
HPI - Abdominal Pain General Chief Complaint: Abdominal Pain Stated Complaint: Severe abdominal pain Time Seen by Provider: 07/30/22 03:31 Source: patient Mode of arrival: ambulatory Limitations: no limitations History of Present Illness HPI narrative: Patient status post cholecystectomy 05/25/2022 comes here with upper abdominal pain with nausea and vomiting since yesterday vomiting multiple times with bright red blood in the end of the vomitus patient very anxious on arrival complaining of pain all over the abdomen no diarrhea no fever no chills no other family member sick Related Data Home Medications Medication Instructions Recorded Confirmed albuterol sulfate 90 mcg/actuation 2 puff inhalation Q4H PRN 05/24/22 05/24/22 aerosol inhaler (Ventolin HFA) Shortness Of Breath Or Wheezing clonidine HCl 0.1 mg tablet 0.1 mg PO TID PRN Anxiety 05/24/22 05/24/22 olanzapine 5 mg tablet 5 mg PO BEDTIME 05/24/22 05/24/22 sertraline 100 mg tablet 150 mg PO DAILY 05/24/22 05/24/22 zolpidem 10 mg tablet (Ambien) 10 mg PO BEDTIME PRN Insomnia 05/24/22 05/24/22 Previous Rx's Medication Instructions Recorded oxycodone 5 mg tablet 5 mg PO Q4H PRN pain (scale score 05/26/22 7-10) #24 tabs Allergies Allergy/AdvReac Type Severity Reaction Status Date / Time ondansetron [From Zofran] Allergy Mild Rash Verified 05/25/22 12:46 acetaminophen [From TYLENOL] Allergy Unknown HIVES Verified 05/24/22 09:00 codeine [CODEINE] Allergy Unknown HIVES Verified 05/24/22 09:00 ibuprofen [From MOTRIN] Allergy Unknown HIVES Verified 05/24/22 09:00 Review of Systems Review of Systems Yes all other systems are reviewed and are negative PMFSH Past Medical History Medical History Cholecystitis, acute with cholelithiasis Social History Social History Household Members: Spouse Housing: Apartment Do you presently have visiting nurse or other home services: No Patient Tobacco Use Status: Current everyday Tobacco user Tobacco use type: Cigarette Cigarettes Per Day: 3 e-Cigarette/Vaping Use: Currently Using Substance Use Type: Marijuana Advance Directives: Yes Advance Directives on File: Yes Advance Directives Date on File: 05/29/22 service: No Current occupational status: disabled Physical Exam ED Vital Signs: Vital Signs - 24 hr 07/30/22 02:58 07/30/22 05:44 07/30/22 07:16 Temperature 97.1 F Pulse Rate 106 H 77 77 Respiratory Rate 18 16 15 Blood Pressure 155/102 H 103/63 114/76 Pulse Oximetry 97 97 96 Oxygen Delivery Method Room Air Room Air Room Air BMI result Body Mass Index 33.2 Appearance: Alert. Oriented X3. Patient very anxious Eyes: No pallor or icterus ENT: Pharynx normal. Oral Mucosa moist Neck: Normal inspection. Neck supple. CVS: Normal heart rate and rhythm. Pulses normal. Respiratory: No respiratory distress. Equal air entry bilateral, no wheezing/rales/rhonchi Abdomen: Soft, diffuse tenderness no rebound or guard Bowel sounds are present, no mass palpable, no CVA tenderness Skin: Skin warm and dry. Normal skin color. Normal skin turgor. Extremities: No lower extremity edema. No calf tenderness Neuro: Oriented X 3. Medical Decision Making Medical Decision Making [facility] Narrative: Patient gastroenteritis feeling much better taking p.o. fluids labs are stable discharge patient home Lab Data [facility] Lab Attestation statement: I reviewed the patient's lab results. 07/30/22 04:16 07/30/22 04:16 Labs: Lab Results 07/30/22 07/30/22 07/30/22 Range/Units 04:16 04:16 06:25 WBC 11.2 H (4.8-10.8) X10*3/uL RBC 5.88 H (4.60-5.80) X10*6/uL Hgb 16.3 (14.0-18.0) g/dl Hct 47.9 (42.0-52.0) % MCV 81.5 (80.0-98.0) fL MCH 27.7 (27.0-33.0) pg MCHC 34.0 (31.0-36.0) g/dl RDW 14.0 (11.0-16.0) % Plt Count 334 (160-400) X10*3/uL MPV 9.3 L (9.4-12.4) fL Immature Gran % (Auto) 0.4 (0.0-0.4) % Neut % (Auto) 57.8 (45-73) % Lymph % (Auto) 33.3 (20-40) % [place] % (Auto) 7.5 (2-11) % Eos % (Auto) 0.7 (0-4) % Baso % (Auto) 0.3 (0-2) % Lymph # (Auto) 3.7 (1.2-4.9) X10*3/uL [place] # (Auto) 0.8 (0.1-1.2) X10*3/uL Eos # (Auto) 0.1 (0.0-0.4) X10*3/uL Baso # (Auto) 0.0 (0.0-0.2) X10*3/uL Abs Immat Gran (auto) 0.04 H (0.00-0.03) X10*3/uL Absolute Neuts (auto) 6.5 (2.0-8.3) x10*3/uL Absolute Nucleated RBC 0.000 (0.0-0.012) X10*3/uL Nucleated RBC % (auto) 0.0 (0.0-0.2) /100WBC Sodium 143 (135-145) mmol/L Potassium 4.9 (3.3-5.1) mmol/L Chloride 111 H (96-108) mmol/L Carbon Dioxide 21 L (22-29) mmol/L Anion Gap 16 (12-20) BUN 6 L (9-16) mg/dL Creatinine 0.78 (0.5-1.4) mg/dL Estim Creat Clear Calc 157.1 Estimated GFR > 60 Random Glucose 109 (60-115) mg/dL Calcium 8.9 D (8.4-10.2) mg/dL Total Bilirubin 0.3 (0.0-1.0) mg/dL Direct Bilirubin < 0.2 (0.0-0.5) mg/dL AST 27 (5-37) U/L ALT 33 (0-40) U/L Alkaline Phosphatase 109 (39-117) U/L Total Protein 7.2 (6.5-8.0) g/dL Albumin 4.2 (3.5-5.0) g/dL Lipase Cancelled 27 Medications Administered Discontinued Medications Generic Name Dose Route Start Last Admin Trade Name Freq PRN Reason Stop Dose Admin Famotidine 20 mg 07/30/22 03:46 07/30/22 04:15 Famotidine/Pf 20 Mg/2 Ml Vial IVPUSH 07/30/22 03:47 20 mg ONCE ONE Administration Sodium Chloride 1,000 mls @ 999 mls/hr 07/30/22 03:46 07/30/22 05:30 Ns IV 07/30/22 04:46 Infused .Q1H1M ONE Infusion Lorazepam 1 mg 07/30/22 03:46 07/30/22 04:15 Lorazepam 2 Mg/Ml Vial IVPUSH 07/30/22 03:47 1 mg ONCE ONE Administration Metoclopramide HCl 10 mg 07/30/22 03:47 07/30/22 04:12 Metoclopramide Hcl 10 Mg/2 Ml Vial IVPUSH 07/30/22 03:48 10 mg ONCE ONE Administration Discharge Plan Discharge Clinical Impression: Gastroenteritis Patient Disposition: Home, Self-Care Instructions: Gastroenteritis (ED) Additional Instructions: Drink plenty of fluid Follow-up with PCP as needed Prescriptions: No Action clonidine HCl 0.1 mg Tablet 0.1 mg PO TID PRN (Reason: Anxiety) sertraline 100 mg Tablet 150 mg PO DAILY olanzapine 5 mg Tablet 5 mg PO BEDTIME zolpidem [Ambien] 10 mg Tablet 10 mg PO BEDTIME PRN (Reason: Insomnia) albuterol sulfate [Ventolin HFA] 90 mcg/actuation Hfa Aerosol Inhaler 2 puff INHALATION Q4H PRN (Reason: Shortness Of Breath Or Wheezing) oxycodone 5 mg tablet 5 mg PO Q4H PRN (Reason: pain (scale score 7-10)) Qty: 24 0RF Rx Instructions: Partial Fill upon patient request.
[2022-07-30] MEDS: Metoclopramide HCl 10 MG/2 ML VIAL IVPUSH (04:12)
[2022-07-30] MEDS: LORazepam 2 MG/ML VIAL 1 MG IVPUSH (04:15)
[2022-07-30] MEDS: Famotidine/PF 20 MG/2 ML VIAL IVPUSH (04:15)
[2022-07-30 04:21] LABS: MANUAL DIFF FLAG NO
[2022-07-30 04:23] LABS: Basophils Percent Auto 0.3 % (0-2); Eosinophils Absolute Auto 0.1 X10*3/uL (0.0-0.4); Eosinophils Percent Auto 0.7 % (0-4); Hematocrit 47.9 % (42.0-52.0); Hemoglobin 16.3 g/dl (14.0-18.0); Imm Gran Abs Auto 0.04 X10*3/uL (0.00-0.03); Imm Gran Pct Auto 0.4 % (0.0-0.4); Lymphocytes Absolute Auto 3.7 X10*3/uL (1.2-4.9); Lymphocytes Percent Auto 33.3 % (20-40); Mean Corpuscular Hemoglobin 27.7 pg (27.0-33.0); Mean Corpuscular Volume 81.5 fL (80.0-98.0); Mean Platelet Volume 9.3 fL (9.4-12.4); Monocytes Absolute Auto 0.8 X10*3/uL (0.1-1.2); Monocytes Percent Auto 7.5 % (2-11); Neutrophils Absolute Auto 6.5 x10*3/uL (2.0-8.3); Neutrophils Percent Auto 57.8 % (45-73); Platelet Count 334 X10*3/uL (160-400); Red Blood Count 5.88 X10*6/uL (4.60-5.80); White Blood Count 11.2 X10*3/uL (4.8-10.8)
[2022-07-30] MEDS: 0.9 % Sodium Chloride 1,000 ML 999 ML IV (04:23)
[2022-07-30 05:44] VITALS: BP 103/63; PULSE 77; RESP 16; O2SAT 97
[2022-07-30 06:43] LABS: Anion Gap 16 (12-20); Blood Urea Nitrogen 6 mg/dL (9-16); Calcium 8.9 mg/dL (8.4-10.2); Carbon Dioxide 21 mmol/L (22-29); Chloride 111 mmol/L (96-108); Creatinine Clr Calc Pharmacy 157.1; Estimated Glomerular Filt Rate > 60; Glucose Random 109 mg/dL (60-115); Lipase 27 U/L (8-78); Potassium 4.9 mmol/L (3.3-5.1); Sodium 143 mmol/L (135-145)
[2022-07-30 07:00] LABS: Alanine Aminotransferase 33 U/L (0-40); Albumin Level 4.2 g/dL (3.5-5.0); Alkaline Phosphatase 109 U/L (39-117); Aspartate Amino Transferase 27 U/L (5-37); Bilirubin Direct < 0.2 mg/dL (0.0-0.5); Bilirubin Total 0.3 mg/dL (0.0-1.0); Total Protein 7.2 g/dL (6.5-8.0)
[2022-07-30 07:16] VITALS: BP 114/76; PULSE 77; RESP 15; O2SAT 96
== END 2022-07-30 07:47 | disposition home or self-care (01) ==
PROVIDERS: Emergency Provider Internal Medicine
DX: K52.9 Noninfective gastroenteritis and colitis, unspecified (principal); F17.210 Nicotine dependence, cigarettes, uncomplicated; Z71.6 Tobacco abuse counseling; Z79.899 Other long term (current) drug therapy
CPT/HCPCS: 36415; 80048; 80076; 83690; 85025; 96361; 96374; 96375; 99283; 99284; J2060; J2765

== ENCOUNTER 2022-09-05 08:44 | Emergency (ER) | payer OTHER, SELFPAY ==
[2022-09-05 08:46] VITALS: BP 149/102; PULSE 75; RESP 16; TEMP 36.5; O2SAT 98; BMI 32.3
--- NOTE | 2022-09-05 08:59 | ED_ITS ---
HPI - General Adult General Chief complaint: Ear Problems Stated complaint: L ear leaking fluid Time Seen by Provider: 09/05/22 08:59 Source: patient Mode of arrival: ambulatory Limitations: no limitations History of Present Illness HPI narrative: Patient is a 32 year old assigned male at with a history of Eustachian tube dysfunction presenting to the emergency department today with right ear pain and drainage. Patient states that when he was 12 years old he required tubes in his ears but he has not had any issues since and has not followed up with an ENT. Patient states that over the last 1 week, he has had right ear pain and drainage of clear and yellow fluid. Patient denies any dizziness, lightheadedness, abdominal pain, nausea, vomiting, fever, chills, blurry vision, double vision, loss of vision, chest pain, difficulty breathing, shortness of breath, back pain, night sweats, pain with urination, increased urinary frequency, increased urinary urgency, blood in his urine or stool, syncope or a near syncopal episode, recent trauma or falls, bowel incontinence, bladder incontinence, bowel retention, bladder retention, or any other complaints at this time. Onset (ago): week(s) (1) Severity: mild Severity scale (1-10): 3 Quality: aching and dull Relieving factors: none Exacerbating factors: none Associated symptoms: denies other symptoms Treatments prior to arrival: none Related Data Home Medications Medication Instructions Recorded Confirmed albuterol sulfate 90 mcg/actuation 2 puff inhalation Q4H PRN 05/24/22 05/24/22 aerosol inhaler (Ventolin HFA) Shortness Of Breath Or Wheezing clonidine HCl 0.1 mg tablet 0.1 mg PO TID PRN Anxiety 05/24/22 05/24/22 olanzapine 5 mg tablet 5 mg PO BEDTIME 05/24/22 05/24/22 sertraline 100 mg tablet 150 mg PO DAILY 05/24/22 05/24/22 zolpidem 10 mg tablet (Ambien) 10 mg PO BEDTIME PRN Insomnia 05/24/22 05/24/22 Previous Rx's Medication Instructions Recorded oxycodone 5 mg tablet 5 mg PO Q4H PRN pain (scale score 05/26/22 7-10) #24 tabs amoxicillin 875 mg-potassium 1 tab PO BID 7 days #14 tabs 09/05/22 clavulanate 125 mg tablet ciprofloxacin 0.3 %-dexamethasone 4 drp otic (ears) BID 7 days #7.5 09/05/22 0.1 % ear drops,suspension mL (Ciprodex) Allergies Allergy/AdvReac Type Severity Reaction Status Date / Time ondansetron [From Zofran] Allergy Mild Rash Verified 05/25/22 12:46 acetaminophen [From TYLENOL] Allergy Unknown HIVES Verified 05/24/22 09:00 codeine [CODEINE] Allergy Unknown HIVES Verified 05/24/22 09:00 ibuprofen [From MOTRIN] Allergy Unknown HIVES Verified 05/24/22 09:00 Review of Systems Constitutional: Constitutional: Reports no additional constitutional complaints, Denies chills, Denies fever(s) and Denies night sweats Eyes: Eyes: Reports no additional eye complaints, Denies blurry vision, Denies change in vision, Denies diplopia, Denies eye discharge, Denies loss of vision and Denies eye pain ENT: Denies dizziness Comments: right ear pain, drainage from right ear Cardiovascular: Cardiovascular: Reports no additional cardiovascular complaints, Denies chest pain, Denies lightheadedness, Denies Loss of Consciousness and Denies dyspnea Respiratory: Respiratory: Reports no additional respiratory complaints and Denies dyspnea Gastrointestinal: Gastrointestinal: Reports no additional gastrointestinal complaints, Denies abdominal pain, Denies melena, Denies hematochezia, Denies change in bowel habits and Denies change in stool character Genitourinary: Genitourinary: Reports no additional male genitourinary complaints, Denies hematuria, Denies oliguria, Denies difficulty urinating, Denies dysuria, Denies urinary frequency, Denies urinary hesitancy, Denies urinary incontinence and Denies urinary urgency Musculoskeletal: Musculoskeletal: Reports no additional musculoskeletal complaints, Denies numbness and Denies tingling Neurologic: Denies dizziness, Denies loss of vision, Denies numbness and Denies tingling Psychiatric: Psychiatric: Reports no additional psychiatric complaints Endocrine: Endocrine: Reports no additional endocrine complaints Hematologic/Lymphatic: Hematologic/Lymphatic: Reports no additional hematologic/lymphatic complaints Allergic/Immunologic: Allergic/Immunologic: Reports no additional allergic/immunologic complaints PMFSH Past Medical History Attestation statement: The following information was validated with the patient. Source: old records reviewed and nursing notes reviewed Medical History Cholecystitis, acute with cholelithiasis Social History Social History Household Members: Spouse Housing: Apartment Do you presently have visiting nurse or other home services: No Alcohol intake: never Patient Tobacco Use Status: Current everyday Tobacco user Tobacco use type: Cigarette Cigarettes Per Day: 3 e-Cigarette/Vaping Use: Currently Using Substance Use Type: Marijuana Advance Directives Date on File: 05/29/22 service: No Current occupational status: disabled Physical Exam ED Vital Signs: Vital Signs - 24 hr 09/05/22 08:46 Temperature 97.7 F Pulse Rate 75 Respiratory Rate 16 Blood Pressure 149/102 H Pulse Oximetry 98 Oxygen Delivery Method Room Air BMI result Body Mass Index 32.3 Const General: cooperative, no acute distress, alert and awake Nutritional Appearance: well nourished Orientation/consciousness: patient oriented x3 Limitations: no limitations HENMT Head: Yes normal to inspection and Yes atraumatic Ears: hearing grossly normal bilaterally, external ears normal, Abnormal EAC present edema on the right and unable to visualize TM on the right General nose exam: Normal external nose present, no nasal discharge noted and no epistaxis Face and sinus: Yes normal facial exam, No abrasion and No laceration Mouth: Normal oral and palatal mucosa present, no drooling and no muffled voice Eyes General: appearance normal, both eyes and all related structures Periorbital: periorbital findings normal Eyelids: Yes eyelids normal Conjunctivae: conjunctivae normal Pupils: Equal, round and reactive pupils present EOM: EOMs intact bilaterally Neck Neck: Yes normal visual inspection, Yes full ROM and Yes no lymphadenopathy Chest Chest palpation & inspection: normal inspection of the chest Resp Effort & Inspection: normal respiratory effort and able to speak in complete sentences GI Inspection: Yes normal to inspection Neuro General: patient oriented x3 and moves all extremities Cranial nerves: Yes Equal, round and reactive pupils present Cognition (Neuro): normal cognition Motor exam (neuro): 5/5 motor strength present throughout Sensory Exam: Normal double simultaneous stimulation for sensation Coordination: [id number] test normal Extrem General: Yes normal to inspection, Yes full ROM and Yes capillary refill normal Psych Appearance: grossly normal Mental Status: mental status grossly normal Affect: normal affect Attitude: cooperative Thought process: Normal thought process present Thought content: Normal thought content present Insight: Good insight present (Psych) Medical Decision Making Medical Decision Making MDM Narrative: Patient is a 32 year old assigned male at with a history of Eustachian tube dysfunction presenting to the emergency department today with right ear pain and drainage. Patient's physical exam showed right auditory canal swelling and I was unable to visualize the right TM. I explained my physical exam findings to the patient. I answered all questions asked by the patient. I stressed the importance of the patient taking his medication as prescribed. I stressed the importance of the patient following up with his primary care provider and an ENT. I stressed the importance of the patient returning to the emergency department immediately if his symptoms were to worsen or if he were to develop any dizziness, shortness of breath, difficulty breathing, chest pain, blurry vision, loss of vision, nausea, vomiting, abdominal pain, fever, chills, back pain, or any other complaints. Patient verbalized agreement and understanding with this treatment plan and discharge. Differential Diagnosis Differential Diagnoses: The differential diagnosis associated with the presentation includes otitis media, otitis externa Discharge Plan Discharge Clinical Impression: Otitis externa, Otitis media Patient Disposition: Home, Self-Care Instructions: Otitis Externa (DC), How to Use Ear Drops (ED), Ear Infection (ED) Additional Instructions: Follow up with your primary care provider and an ENT. Return to the emergency department immediately if your symptoms worsen or if you develop any dizziness, shortness of breath, difficulty breathing, chest pain, blurry vision, loss of vision, nausea, vomiting, abdominal pain, fever, chills, back pain, or any other complaints. Prescriptions: New ciprofloxacin-dexamethasone [Ciprodex] 0.3-0.1 % drops,suspension 4 drp otic (ears) BID 7 Days Qty: 7.5 0RF amoxicillin-pot clavulanate 875-125 mg tablet 1 tab PO BID 7 Days Qty: 14 0RF No Action clonidine HCl 0.1 mg Tablet 0.1 mg PO TID PRN (Reason: Anxiety) sertraline 100 mg Tablet 150 mg PO DAILY olanzapine 5 mg Tablet 5 mg PO BEDTIME zolpidem [Ambien] 10 mg Tablet 10 mg PO BEDTIME PRN (Reason: Insomnia) albuterol sulfate [Ventolin HFA] 90 mcg/actuation Hfa Aerosol Inhaler 2 puff INHALATION Q4H PRN (Reason: Shortness Of Breath Or Wheezing) oxycodone 5 mg tablet 5 mg PO Q4H PRN (Reason: pain (scale score 7-10)) Qty: 24 0RF Rx Instructions: Partial Fill upon patient request. Referrals: [facility] [place] [facility] [place] Group] (Call to establish and follow up with a primary care provider. If you already have a primary care provider, please follow up with them.) [facility] [place] [facility] [Provider Group] (Call to establish and follow up with a primary care provider. If you already have a primary care provider, please follow up with them.) [facility] [place] [facility] (Call to establish and follow up with a primary care provider. If you already have a primary care provider, please follow up with them.) [facility] [Physician] - (Call to establish and follow up with a primary care provider. If you already have a primary care provider, please follow up with them.) [facility] [Physician] - (Call to establish and follow up with an ears, nose, and throat specialist. ) Stand Alone Forms: Work/School Release Print Language: [place]
--- NOTE | 2022-09-05 09:12 | PC.NURSE ---
patient a&ox3, pt c/o ear ache, provider already evaluated patient and is being discharged with po meds to take at home.
== END 2022-09-05 09:25 | disposition home or self-care (01) ==
LOC: HO.ED 09:14
PROVIDERS: Emergency Provider Student in an Organized Health Care Education/Training Program
DX: H60.91 Unspecified otitis externa, right ear (principal); H66.91 Otitis media, unspecified, right ear; F17.210 Nicotine dependence, cigarettes, uncomplicated; F12.90 Cannabis use, unspecified, uncomplicated
CPT/HCPCS: 99283

== ENCOUNTER 2022-09-12 09:38 | Emergency (ER) | payer OTHER, SELFPAY ==
--- NOTE | ~2022-09-12 | CT_ITS ---
EXAMINATION: CT HEAD WITHOUT CONTRAST CLINICAL INFORMATION: Neck pain, rule out mastoiditis. COMPARISON: None available. TECHNIQUE: Contiguous axial imaging was performed from the skull base to vertex without intravenous administration of contrast. This CT examination was performed using dose optimization techniques as appropriate, variously including the following: *Automated exposure control *Adjustment of mA and/or kV according to patient size (this includes techniques or standardized protocols for targeted exams where dose is matched to indication/reason for exam; i.e. extremities or head) *Use of iterative reconstruction technique DLP: 801 mGy-cm FINDINGS: The cortical sulci are normal. The lateral ventricles are symmetrical. The third and fourth ventricles are in their normal midline position. The basilar and prepontine cisterns are unremarkable. There is no acute intra or extracerebral abnormality. There is no mass effect or midline shift. Sections through the bony calvarium are unremarkable. The paranasal sinuses are clear. The bony orbits and orbital contents are unremarkable. There is hypoaeration of the mastoid processes bilaterally. Opacification of the visualized right mastoid air cells is seen. The left mastoid air cells show opacification of several air cells inferiorly, but are clear superiorly. CT/CT head/brain wo IV con IMPRESSION: 1. No acute intracranial pathology. 2. Hypoaeration of the mastoid processes bilaterally with opacification of the visualized mastoid air cells, right greater than left. These findings are consistent with mastoid effusion/mastoiditis.
--- NOTE | ~2022-09-12 | CT_ITS ---
EXAMINATION: CT CERVICAL SPINE WITHOUT CONTRAST CLINICAL INFORMATION: Right neck pain. COMPARISON: None available. TECHNIQUE: Multiple axial images of the cervical spine were obtained without the administration of intravenous contrast. Coronal and sagittal reformatted images were obtained. This CT examination was performed using dose optimization techniques as appropriate, variously including the following: *Automated exposure control *Adjustment of mA and/or kV according to patient size (this includes techniques or standardized protocols for targeted exams where dose is matched to indication/reason for exam; i.e. extremities or head) *Use of iterative reconstruction technique DLP: 836.48 mGy-cm FINDINGS: Mild cervical thoracic levoscoliosis is seen with apex at C6-7. There is normal lumbar lordosis and spinal alignment. Mild degenerative disc disease is seen at C5-6 with disc space narrowing and marginal osteophyte formation. The patient is status post posterior fusion at C1 and C2 with bilateral pedicle screws and posterior fixation rods in place. The transverse and spinous processes are intact. The odontoid process is intact. The cervical soft tissues are unremarkable. There is no lymphadenopathy. The thyroid gland is unremarkable. The lung apices are clear. CT/CT cervical spine wo IV con IMPRESSION: 1. Mild cervical thoracic levoscoliosis and mild degenerative disc disease at C5-6. 2. Status post C1 and C2 posterior fusion without acute abnormality.
[2022-09-12 09:48] VITALS: BP 119/78; PULSE 71; RESP 18; TEMP 36.9; O2SAT 97; BMI 34.9
--- NOTE | 2022-09-12 11:23 | ED.NECK ---
HPI - Neck Pain/Injury General Chief Complaint: Neck Pain/Injury Stated Complaint: Neck pain ear infection 1 wk ago Time Seen by Provider: 09/12/22 11:19 Source: patient, RN notes reviewed and old records reviewed Mode of arrival: ambulatory History of Present Illness HPI Narrative: 32-year-old male with a past medical history of otitis externa and media treated with Augmentin and Ciprodex in our ED on 09/05, presenting to the ED complaining of continued right ear pain radiating to right neck and head x few days, worsening yesterday. Reports compliance with previously prescribed antibiotics and drops, states has 2 more days left. Denies injury/ manipulation, fever/chills, active drainage from ear, sore throat, oral swelling MD complaint: neck pain Onset (ago): day(s) Related Data Home Medications Medication Instructions Recorded Confirmed albuterol sulfate 90 mcg/actuation 2 puff inhalation Q4H PRN 05/24/22 05/24/22 aerosol inhaler (Ventolin HFA) Shortness Of Breath Or Wheezing clonidine HCl 0.1 mg tablet 0.1 mg PO TID PRN Anxiety 05/24/22 05/24/22 olanzapine 5 mg tablet 5 mg PO BEDTIME 05/24/22 05/24/22 sertraline 100 mg tablet 150 mg PO DAILY 05/24/22 05/24/22 zolpidem 10 mg tablet (Ambien) 10 mg PO BEDTIME PRN Insomnia 05/24/22 05/24/22 Previous Rx's Medication Instructions Recorded oxycodone 5 mg tablet 5 mg PO Q4H PRN pain (scale score 05/26/22 7-10) #24 tabs amoxicillin 875 mg-potassium 1 tab PO BID 7 days #14 tabs 09/05/22 clavulanate 125 mg tablet ciprofloxacin 0.3 %-dexamethasone 4 drp otic (ears) BID 7 days #7.5 09/05/22 0.1 % ear drops,suspension mL (Ciprodex) Allergies Allergy/AdvReac Type Severity Reaction Status Date / Time ondansetron [From Zofran] Allergy Mild Rash Verified 05/25/22 12:46 acetaminophen [From TYLENOL] Allergy Unknown HIVES Verified 05/24/22 09:00 codeine [CODEINE] Allergy Unknown HIVES Verified 05/24/22 09:00 ibuprofen [From MOTRIN] Allergy Unknown HIVES Verified 05/24/22 09:00 Review of Systems Review of Systems: Constitutional: No Fever, No Chills ENT/Mouth: + Ear Pain, No Nasal Congestion, No Sinus Pain, No Hoarseness, No sore throat, No Rhinorrhea, No Swallowing Difficulty Cardiovascular: No Chest Pain, No SOB Respiratory: No Cough, No Sputum, No Wheezing Gastrointestinal: No Nausea, No Vomiting, No Diarrhea, No Constipation, No Abdominal pain Musculoskeletal: + neck pain, No Myalgias, No Joint Swelling Skin: No Skin Lesions, No rash Neuro: No Weakness, No Numbness, No Paresthesias Yes all other systems are reviewed and are negative Constitutional: Constitutional: Reports as per [facility] Past Medical History Attestation statement: The following information was validated with the patient. Medical History Cholecystitis, acute with cholelithiasis Social History Social History Household Members: Spouse Housing: Apartment Do you presently have visiting nurse or other home services: No Alcohol intake: never Patient Tobacco Use Status: Current everyday Tobacco user Tobacco use type: Cigarette Cigarettes Per Day: 3 e-Cigarette/Vaping Use: Currently Using Substance Use Type: Marijuana Advance Directives: Yes Advance Directives on File: Yes Advance Directives Date on File: 05/29/22 service: No Current occupational status: disabled Physical Exam Vital Signs: Vital Signs: Last Vital Signs Temp 98.4 F 09/12/22 09:48 Pulse 71 09/12/22 09:48 Resp 18 09/12/22 09:48 BP 119/78 09/12/22 09:48 Pulse Ox 97 09/12/22 09:48 O2 Del Method Room Air 09/12/22 09:48 BMI result Body Mass Index 34.9 Const: General: cooperative, healthy appearing and no acute distress Orientation/consciousness: patient oriented x3 Limitations: no limitations HEENT: Head: Yes normal to inspection, Yes No palpable skull fracture present, Yes normocephalic, Yes atraumatic, No Carrasco's sign and No raccoon eyes Ears: hearing grossly normal bilaterally, external ear abnormal auricular tenderness on the right and pain with movement of external ear on the right, mastoid abnormal (+ttp to right mastoid, no crepitus ) and TM abnormal dull on the right, erythematous on the right and scarred on the right General nose exam: Normal external nose present Face and sinus: Yes normal facial exam Throat: Yes posterior oropharynx normal, Yes tonsils normal, Yes uvula midline, No peritonsillar mass, No uvula laterally displaced and No uvular edema Eyes: General: appearance normal, both eyes and all related structures Pupils: Equal, round and reactive pupils present EOM: EOMs intact bilaterally Neck: Other: + right-sided paraspinal and trapezius muscle tenderness to palpation. No appreciable anterior neck swelling. Trachea midline. Neck: Yes normal visual inspection, Yes no lymphadenopathy, Yes no meningeal signs, No anterior neck swelling and Yes torticollis (rightward) Resp: Effort & Inspection: normal respiratory effort, no respiratory distress, no stridor and not tachypneic Cardio: Rate: regular rate Skin: Rashes: no rashes Wounds: no wounds Neuro: General: patient oriented x3, gait normal, tone normal, no meningeal signs and CN's II-XI intact bilaterally Cranial nerves: Yes Equal, round and reactive pupils present Gait exam (Neuro): Normal gait present Extrem: General: Yes normal to inspection Course Course Course Narrative: -no leukocytosis. ESR/CRP WNL. Labs otherwise reassuring CT head/brain wo IV con/CT cervical spine wo IV con IMPRESSION: 1.? No acute intracranial pathology. 2. Hypoaeration of the mastoid processes bilaterally with opacification of the visualized mastoid air cells, right greater than left. These findings are consistent with mastoid effusion/mastoiditis. >> results discussed with patient, lactic/blood cultures and empiric IV cefepime ordered. 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 Discussed with patient importance of IV antibiotics, and risk of progression of this infection, patient always welcome to return to the ED, will sign out AMA, risk of discussed, patient is A&O x3, competent to make his own decisions. States to go black pickler his son and return for IV antibiotics and possible transport. > blood cultures/lactic and IV antibiotics not performed. Medications Administered Discontinued Medications Generic Name Dose Route Start Last Admin Trade Name Freq PRN Reason Stop Dose Admin Diazepam 5 mg 09/12/22 11:33 09/12/22 11:42 Diazepam 2 Mg Tablet PO 09/12/22 11:34 5 mg ONCE ONE Administration Medical Decision Making Medical Decision Making [facility] Narrative: 32-year-old male with a past medical history of otitis externa and media treated with Augmentin and Ciprodex in our ED on 09/05, presenting to the ED complaining of continued right ear pain radiating to right neck and head x few days, worsening yesterday. On exam vital signs stable, NAD, + torticollis noted with right-sided cervical paraspinal and trapezius muscle tenderness, right external canal with mild swelling, or tenderness, and cloudy TM. Concern for continued otitis media/externa vs mastoiditis vs neck strain/MSK spasming. Lower suspicion for chronic otitis externa or fungal infection at this time. No evidence of [employer]. Low suspicion for strep pharyngitis or cervical dissection Plan: Labs, P.o. Valium, head/C-spine CT Please refer to course for remaining clinical decision making, interpretation of labs/imaging results, and discussions with consultants and/or family members. Differential Diagnosis Differential Diagnoses: The differential diagnosis associated with the presentation includes As above Admission/Observation Consideration of admission/observation: Escalation of care including admission/observation considered Lab Data [facility] Lab Attestation statement: I reviewed the patient's lab results. 09/12/22 11:54 09/12/22 11:54 Labs: Lab Results 09/12/22 09/12/22 09/12/22 Range/Units 11:54 11:54 11:54 WBC 10.6 (4.8-10.8) X10*3/uL RBC 5.82 H (4.60-5.80) X10*6/uL Hgb 16.0 (14.0-18.0) g/dl Hct 48.7 (42.0-52.0) % MCV 83.7 (80.0-98.0) fL MCH 27.5 (27.0-33.0) pg MCHC 32.9 (31.0-36.0) g/dl RDW 14.3 (11.0-16.0) % Plt Count 353 (160-400) X10*3/uL MPV 9.4 (9.4-12.4) fL Immature Gran % (Auto) 0.3 (0.0-0.4) % Neut % (Auto) 55.1 (45-73) % Lymph % (Auto) 33.6 (20-40) % Graves % (Auto) 8.4 (2-11) % Eos % (Auto) 2.1 (0-4) % Baso % (Auto) 0.5 (0-2) % Lymph # (Auto) 3.6 (1.2-4.9) X10*3/uL Graves # (Auto) 0.9 (0.1-1.2) X10*3/uL Eos # (Auto) 0.2 (0.0-0.4) X10*3/uL Baso # (Auto) 0.1 (0.0-0.2) X10*3/uL Abs Immat Gran (auto) 0.03 (0.00-0.03) X10*3/uL Absolute Neuts (auto) 5.8 (2.0-8.3) x10*3/uL Absolute Nucleated RBC 0.000 (0.0-0.012) X10*3/uL Nucleated RBC % (auto) 0.0 (0.0-0.2) /100WBC ESR 2 (0-15) MM/HR Sodium 139 (135-145) mmol/L Potassium 4.4 (3.3-5.1) mmol/L Chloride 109 H (96-108) mmol/L Carbon Dioxide 21 L (22-29) mmol/L Anion Gap 13 (12-20) BUN 8 L (9-16) mg/dL Creatinine 0.73 (0.5-1.4) mg/dL Estim Creat Clear Calc 182.5 Estimated GFR > 60 Random Glucose 102 (60-115) mg/dL Calcium 9.8 D (8.4-10.2) mg/dL C-Reactive Protein 0.23 (< or = 0.50) mg/dL Radiology Impression Discussion of test interpretation with radiology: I have reviewed the radiologist's reading. External Record Review External record reviewed: Inpatient record, Office record, Outpatient record, Prior outpatient labs, Prior outpatient radiology, Primary care record and Outside ED record Critical Care Time Critical Care Time Critical Care Time: Yes Total Critical Care Time: 35 Attestation: I have personally provided critical care time exclusive of time spent on separately billable procedures. Time includes review of lab data, radiology results, discussion with consultants, and monitoring for potential decompensation. Intervention performed as documented. Discharge Plan Discharge Clinical Impression: Acute mastoiditis Patient Disposition: Left Against Medical Advice Instructions: Mastoiditis (ED) Additional Instructions: You have a series infection of your ears and mastoid bones. This requires IV antibiotics, this may require transport to another facility Your signing out against medical advice. Leaving this facility you understand that he could have permanent disability, permanent pain, and You are always welcome to return Prescriptions: No Action clonidine HCl 0.1 mg Tablet 0.1 mg PO TID PRN (Reason: Anxiety) sertraline 100 mg Tablet 150 mg PO DAILY olanzapine 5 mg Tablet 5 mg PO BEDTIME zolpidem [Ambien] 10 mg Tablet 10 mg PO BEDTIME PRN (Reason: Insomnia) albuterol sulfate [Ventolin HFA] 90 mcg/actuation Hfa Aerosol Inhaler 2 puff INHALATION Q4H PRN (Reason: Shortness Of Breath Or Wheezing) oxycodone 5 mg tablet 5 mg PO Q4H PRN (Reason: pain (scale score 7-10)) Qty: 24 0RF Rx Instructions: Partial Fill upon patient request. ciprofloxacin-dexamethasone [Ciprodex] 0.3-0.1 % drops,suspension 4 drp otic (ears) BID 7 Days Qty: 7.5 0RF amoxicillin-pot clavulanate 875-125 mg tablet 1 tab PO BID 7 Days Qty: 14 0RF Referrals: Oni Rasmussen [Physician] - Stand Alone Forms: Against Medical Advice
[2022-09-12] MEDS: diazePAM 2 MG TABLET 5 MG PO (11:42)
--- NOTE | 2022-09-12 11:57 | PC.NURSE ---
patient medicated with 5 mg diazepam per MAR. patient stated pain 8/10. labs were collected. pt awaiting CT.
[2022-09-12 12:03] LABS: MANUAL DIFF FLAG NO
[2022-09-12 12:07] LABS: Basophils Absolute Auto 0.1 X10*3/uL (0.0-0.2); Basophils Percent Auto 0.5 % (0-2); Eosinophils Absolute Auto 0.2 X10*3/uL (0.0-0.4); Eosinophils Percent Auto 2.1 % (0-4); Hematocrit 48.7 % (42.0-52.0); Imm Gran Abs Auto 0.03 X10*3/uL (0.00-0.03); Imm Gran Pct Auto 0.3 % (0.0-0.4); Lymphocytes Absolute Auto 3.6 X10*3/uL (1.2-4.9); Lymphocytes Percent Auto 33.6 % (20-40); Mean Corpuscular HGB Conc 32.9 g/dl (31.0-36.0); Mean Corpuscular Hemoglobin 27.5 pg (27.0-33.0); Mean Corpuscular Volume 83.7 fL (80.0-98.0); Mean Platelet Volume 9.4 fL (9.4-12.4); Monocytes Absolute Auto 0.9 X10*3/uL (0.1-1.2); Monocytes Percent Auto 8.4 % (2-11); Neutrophils Absolute Auto 5.8 x10*3/uL (2.0-8.3); Neutrophils Percent Auto 55.1 % (45-73); Platelet Count 353 X10*3/uL (160-400); Red Blood Count 5.82 X10*6/uL (4.60-5.80); Red Cell Distribution Width 14.3 % (11.0-16.0); White Blood Count 10.6 X10*3/uL (4.8-10.8)
[2022-09-12 12:21] LABS: Anion Gap 13 (12-20); Blood Urea Nitrogen 8 mg/dL (9-16); C Reactive Protein 0.23 mg/dL (< or = 0.50); Calcium 9.8 mg/dL (8.4-10.2); Carbon Dioxide 21 mmol/L (22-29); Chloride 109 mmol/L (96-108); Creatinine Clr Calc Pharmacy 182.5; Estimated Glomerular Filt Rate > 60; Glucose Random 102 mg/dL (60-115); Potassium 4.4 mmol/L (3.3-5.1); Sodium 139 mmol/L (135-145)
[2022-09-12 12:50] LABS: Erythrocyte Sedimentation Rate 2 MM/HR (0-15)
== END 2022-09-12 14:11 | disposition left against medical advice (07) ==
PROVIDERS: Physician Assistant; Emergency Provider Emergency Medicine
DX: H70.001 Acute mastoiditis without complications, right ear (principal); M54.2 Cervicalgia; R51.9 Headache, unspecified; Z79.899 Other long term (current) drug therapy
CPT/HCPCS: 36415; 70450; 72125; 80048; 85025; 85652; 86140; 99282; 99284

== ENCOUNTER 2022-09-12 15:16 | Emergency (ER) | payer OTHER, SELFPAY ==
--- NOTE | 2022-09-12 15:23 | ED_ITS ---
HPI - Ear Problem General Chief complaint: Ear Problems Stated complaint: Needs IV antibiotics Time Seen by Provider: 09/12/22 15:22 Source: patient, RN notes reviewed and old records reviewed Mode of arrival: ambulatory History of Present Illness HPI Narrative: 32-year-old male with a past medical history of otitis externa and media treated in our ED on 09/05, presenting back to the ED for IV antibiotics S/P being diagnosed with acute bilateral mastoid effusion/mastoiditis in the ED earlier today. 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, prior to lactic/blood culture or IV antibiotic administration MD Complaint: ear pain Location: right ear Related Data Home Medications Medication Instructions Recorded Confirmed albuterol sulfate 90 mcg/actuation 2 puff inhalation Q4H PRN 05/24/22 05/24/22 aerosol inhaler (Ventolin HFA) Shortness Of Breath Or Wheezing clonidine HCl 0.1 mg tablet 0.1 mg PO TID PRN Anxiety 05/24/22 05/24/22 olanzapine 5 mg tablet 5 mg PO BEDTIME 05/24/22 05/24/22 sertraline 100 mg tablet 150 mg PO DAILY 05/24/22 05/24/22 zolpidem 10 mg tablet (Ambien) 10 mg PO BEDTIME PRN Insomnia 05/24/22 05/24/22 Previous Rx's Medication Instructions Recorded oxycodone 5 mg tablet 5 mg PO Q4H PRN pain (scale score 05/26/22 7-10) #24 tabs amoxicillin 875 mg-potassium 1 tab PO BID 7 days #14 tabs 09/05/22 clavulanate 125 mg tablet ciprofloxacin 0.3 %-dexamethasone 4 drp otic (ears) BID 7 days #7.5 09/05/22 0.1 % ear drops,suspension mL (Ciprodex) Allergies Allergy/AdvReac Type Severity Reaction Status Date / Time ondansetron [From Zofran] Allergy Mild Rash Verified 05/25/22 12:46 acetaminophen [From TYLENOL] Allergy Unknown HIVES Verified 05/24/22 09:00 codeine [CODEINE] Allergy Unknown HIVES Verified 05/24/22 09:00 ibuprofen [From MOTRIN] Allergy Unknown HIVES Verified 05/24/22 09:00 Review of Systems Review of Systems: Constitutional: No Fever, No Chills ENT/Mouth: + Ear Pain, No Nasal Congestion, No Sinus Pain, No Hoarseness, No sore throat, No Rhinorrhea, No Swallowing Difficulty Cardiovascular: No Chest Pain, No SOB Respiratory: No Cough, No Wheezing Gastrointestinal: No Nausea, No Vomiting, No Diarrhea, No Constipation, No Abdominal pain Genitourinary: No Dysuria, No Urinary Frequency, No Hematuria, No Flank Pain Musculoskeletal: + neck pain, No Myalgias, No Joint Swelling Skin: No Skin Lesions, No rash Neuro: No Weakness, No Numbness, No Paresthesias Yes all other systems are reviewed and are negative Constitutional: Constitutional: Reports as per [facility] Past Medical History Attestation statement: The following information was validated with the patient. Medical History Cholecystitis, acute with cholelithiasis Social History Social History Household Members: Spouse Housing: Apartment Do you presently have visiting nurse or other home services: No Alcohol intake: never Patient Tobacco Use Status: Current everyday Tobacco user Tobacco use type: Cigarette Cigarettes Per Day: 3 e-Cigarette/Vaping Use: Currently Using Substance Use Type: Marijuana Advance Directives Date on File: 05/29/22 service: No Current occupational status: disabled Physical Exam Vital Signs: Vital Signs: Last Vital Signs Temp 97.8 F 09/12/22 15:29 Pulse 71 09/12/22 15:29 Resp 18 09/12/22 15:29 BP 157/102 H 09/12/22 15:29 Pulse Ox 97 09/12/22 15:29 O2 Del Method Room Air 09/12/22 15:29 BMI result Body Mass Index 34.9 Const: General: cooperative, healthy appearing and no acute distress Orientation/consciousness: patient oriented x3 Limitations: no limitations HEENT: Head: Yes normal to inspection and Yes atraumatic Ears: hearing grossly normal bilaterally, external ear abnormal auricular tenderness and pain with movement of external ear, mastoid abnormal (+ttp to right mastoid) and TM abnormal dull on the right, erythematous on the right and scarred on the right General nose exam: Normal external nose present Face and sinus: Yes normal facial exam Throat: Yes tonsils normal, Yes uvula midline, No peritonsillar mass and No uvular edema Eyes: General: appearance normal, both eyes and all related structures EOM: EOMs intact bilaterally Neck: Other: No midline cervical spinous tenderness. Right-sided paraspinal and trapezius muscle tenderness with right-sided torticollis Neck: Yes normal visual inspection, Yes no meningeal signs and No anterior neck swelling Resp: Effort & Inspection: normal respiratory effort and no respiratory distress Auscultation: clear to auscultation bilaterally Cardio: Rate: regular rate Heart sounds: S1 normal heart sound present and S2 normal heart sound present Skin: Rashes: no rashes Wounds: no wounds Neuro: General: patient oriented x3, tone normal and no meningeal signs Gait exam (Neuro): Normal gait present Extrem: General: Yes normal to inspection Course Course Course Narrative: -1530-- [facility] closed to transfer due to capacity -1535-- [facility] closed to transfer -1549--[facility] accepted transfer, ED to ED, excepting physician Dr. Euceda Medical Decision Making Medical Decision Making [facility] Narrative: 32-year-old male with a past medical history of otitis externa and media treated in our ED on 09/05, presenting back to the ED for IV antibiotics S/P being diagnosed with acute bilateral mastoid effusion/mastoiditis in the ED earlier today. On exam hypertensive likely from pain, NAD, nontoxic appearing, physical exam as noted above. CT from earlier today shows bilateral mastoid opacification right greater than left consistent with mastoid effusions/mastoiditis. Labs unremarkable. Will obtain lactic/blood cultures, initiate IV cefepime and attempt transfer Please refer to course for remaining clinical decision making, interpretation of labs/imaging results, and discussions with consultants and/or family members. Differential Diagnosis Differential Diagnoses: The differential diagnosis associated with the presentation includes As above Admission/Observation Consideration of admission/observation: Escalation of care including admission/observation considered Consult Healthcare Provider Management of the patient was discussed with: Safety And Security Manager Lab Data [facility] Lab Attestation statement: I reviewed the patient's lab results. Radiology Impression Discussion of test interpretation with radiology: I have reviewed the radiologist's reading. External Record Review External record reviewed: Inpatient record, Office record, Outpatient record, Prior outpatient labs, Prior outpatient radiology, Primary care record and Outside ED record Critical Care Time Critical Care Time Critical Care Time: Yes Total Critical Care Time: 30 Attestation: I have personally provided critical care time exclusive of time spent on separately billable procedures. Time includes review of lab data, radiology results, discussion with consultants, and monitoring for potential decompensation. Intervention performed as documented. Discharge Plan Discharge Clinical Impression: Acute mastoiditis Patient Disposition: [facility] Transfer Details: [facility], ED to ED, excepting physician Dr. Euceda Prescriptions: No Action clonidine HCl 0.1 mg Tablet 0.1 mg PO TID PRN (Reason: Anxiety) sertraline 100 mg Tablet 150 mg PO DAILY olanzapine 5 mg Tablet 5 mg PO BEDTIME zolpidem [Ambien] 10 mg Tablet 10 mg PO BEDTIME PRN (Reason: Insomnia) albuterol sulfate [Ventolin HFA] 90 mcg/actuation Hfa Aerosol Inhaler 2 puff INHALATION Q4H PRN (Reason: Shortness Of Breath Or Wheezing) oxycodone 5 mg tablet 5 mg PO Q4H PRN (Reason: pain (scale score 7-10)) Qty: 24 0RF Rx Instructions: Partial Fill upon patient request. ciprofloxacin-dexamethasone [Ciprodex] 0.3-0.1 % drops,suspension 4 drp otic (ears) BID 7 Days Qty: 7.5 0RF amoxicillin-pot clavulanate 875-125 mg tablet 1 tab PO BID 7 Days Qty: 14 0RF
[2022-09-12 15:29] VITALS: BP 157/102; PULSE 71; RESP 18; TEMP 36.6; O2SAT 97; BMI 34.9
[2022-09-12 15:58] VITALS: RESP 16
[2022-09-12] MEDS: HYDROmorphone HCl 0.5 MG/0.5 ML SYRINGE IVPUSH (15:58)
[2022-09-12] MEDS: cefEPime HCl 2 GM in 0.9 % Sodium Chloride 50 ML IV (16:05)
[2022-09-12 16:06] LABS: Lactic Acid 0.7 mmol/L (0.5-2.0)
--- NOTE | 2022-09-12 16:06 | PC.NURSE ---
pt medicatedper [facility]- plan is to transfer to [place] for further eval and tx --- pt medicated for 10/10 NECK/EAR PAIN w/ dilaudid 0.5mg.
--- NOTE | 2022-09-12 16:11 | PC.NURSE ---
pt rec 2gm Cefepime IV via 20G iv in eft AC- pt to be transferred to [place] via [facility]
[2022-09-12 16:26] LABS: COVID-19 Test Negative (Negative); IDNOW Serial# BCCEAD1C
--- NOTE | 2022-09-12 16:31 | PC.NURSE ---
pt transferred to [facility], nurse to nurse given to LIDIA Nelson
== END 2022-09-12 16:33 | disposition short-term general hospital (02) ==
LOC: HO.ED 15:59
PROVIDERS: Physician Assistant; Emergency Provider Emergency Medicine Emergency Medical Services
DX: H70.003 Acute mastoiditis without complications, bilateral (principal); F17.210 Nicotine dependence, cigarettes, uncomplicated; Z20.822 Contact with and (suspected) exposure to COVID-19; Z20.828 Contact with and (suspected) exposure to other viral communicable diseases; Z79.899 Other long term (current) drug therapy; Z71.6 Tobacco abuse counseling
CPT/HCPCS: 36415; 83605; 87040; 87635; 96374; 96375; 99285; J0692; J1170